=== PATIENT | male | born 1945 | race Caucasian/White ===

== ENCOUNTER → 2017-06-05 | Outpatient (CLI) | payer MEDICARE ==
[2017-06-05 17:56] LABS: Blood Urea Nitrogen 25 mg/dL (9-20); Non-African American GFR(MDRD) >60 (>60 ml/min/1.73 sqM)
--- NOTE | 2017-06-06 10:17 | CT ---
EXAMINATION TYPE: CT abdomen pelvis w con DATE OF EXAM: 06/05/2017 COMPARISON: NONE INDICATION: ABDOMINAL PAIN. HX OF COLON CA. History of testicular cancer DLP: 1660 mGycm, Automated exposure control for dose reduction was used. CONTRAST: 100 mL of Omnipaque 300. Study performed with Oral Contrast TECHNIQUE: Axial images were obtained from above the diaphragm to the pubic rami in the axial plane a t 5 mm thick sections. Reconstructed images are reviewed on the computer in the coronal plane. FINDINGS: Limited CT sections are obtained the lung bases. The lung bases are clear. CT ABDOMEN: Liver: There is a 1.5 cm hypodensity within the medial right lobe liver near the dome of diaphragm. T his measures 15 Hounsfield units and may be a cyst. Consider confirmation with ultrasound. No additio nal masses or cysts are identified. Spleen: Normal Pancreas: There is some fatty infiltration of the pancreas. Adrenal glands: The adrenal glands are normal. Gallbladder: There may be a gallstone at the neck of the gallbladder. This could be evaluated with ul trasound. Kidneys: No masses are evident. No hydronephrosis is present. A 1.1 cm cyst at the medial inferior right kidney. Delayed images were obtained through the kidneys, which remain unremarkable. A nonobst ructing renal stone is in the superior medial left kidney measuring 0.4 cm. 0.6 cm nonobstructing chantell cification is at the inferior pole left kidney. An additional punctate calcification is anterior infe rior pole measuring 0.2 cm. Aorta: Vascular calcification is within the aorta. Inferior vena cava: Normal. CT PELVIS: Loops of bowel within the abdomen and pelvis are normal. There are loops of bowel which are incom pletely distended or lack oral contrast limiting their evaluation. Fecal debris is throughout the col on. Anastomosis is within the mid sigmoid colon region. Appendix: Normal as visualized. Urinary bladder: Normal. Genitourinary structures: Prostate contains calcification slightly prominent. Osseous structures: No suspicious lytic or sclerotic lesions. Degenerative disc changes are within th e lumbar spine. Vacuum disc phenomenon is present. Degenerative changes at the bilateral hips. No suspicious abdominal or pelvic adenopathy is evident. No abnormal adenopathy at the level of the r enal veins is identified. IMPRESSIONS: 1. 1.5 cm hypodensity at superior medial right lobe liver likely is a cyst. The borders however some what indistinct. Confirmation with ultrasound is recommended. 2. Probable cortical renal cyst mid to inferior right kidney. 3. Nonobstructing left renal stones. 4. Suspected cholelithiasis.
== END | disposition home or self-care (01) ==
LOC: RADCTMAIN 17:08
PROVIDERS: ATTEND Urology
DX: N20.0 Calculus of kidney (principal); K76.89 Other specified diseases of liver; C62.11 Malignant neoplasm of descended right testis
CPT/HCPCS: 82565; 84520; 74177; 36415; Q9967

== ENCOUNTER 2017-10-02 09:19 | Day surgery (SDC) | payer MEDICARE ==
[2017-10-01 13:05] VITALS: BMI 32.7
[~2017-10-02 09:19] MED LIST: LACTATED RINGERS 1,000 ML IV SCH
[2017-10-02] MEDS: CYCLOPENTOLATE 1% OPHTH SOLN 2 ML BTL OP ONE ×3 (10:33→10:50)
[2017-10-02] MEDS: FLURBIPROFEN 0.03% OPHTH DROPS 2.5 ML BTL OP ONE ×3 (10:36→10:53)
[2017-10-02] MEDS: PHENYLEPHRINE 10% OPHTH DROPS 5 ML BTL OP ONE ×2 (10:39→10:47)
[2017-10-02] MEDS ORDERED: LIDOCAINE 1% 20 ML VIAL (10MG/ML) FOR IV START INTRADERMA ONE (11:00)
[2017-10-02 11:01] LABS: Glucose,Whole Blood 217 mg/dL (75-99)
[2017-10-02 11:08] VITALS: RESP 18; TEMP 98
[2017-10-02] MEDS ORDERED: MIDAZOLAM 2 MG/2 ML VIAL ONE (11:18)
[2017-10-02] MEDS ORDERED: PROPOFOL 10 MG/ML 20 ML VIAL IV ONE (11:18)
[2017-10-02] MEDS ORDERED: fentaNYL (PF) 50 MCG/ML 2 ML AMP ONE (11:18)
[2017-10-02] MEDS ORDERED: EPINEPHrine (PF) 0.5 ML in BALANCED SALT IRRIG SOLN COMB2 500 ML IRRIGATION ONE (11:23)
[2017-10-02] MEDS ORDERED: HYALURONATE SODIUM INTRAOCULAR 1 EACH SYRINGE (10MG/ML) INTRAOCULA ONE (11:29)
[2017-10-02] MEDS ORDERED: BALANCED SALT IRRIG SOLN COMB2 15 ML IRRIG.SOLN INTRAOCULA ONE (11:29)
--- NOTE | 2017-10-02 11:39 | P.OP ---
Date of Procedure: 10/02/17 Procedure(s) Performed: PREOPERATIVE DIAGNOSIS: Cataract, right eye. POSTOPERATIVE DIAGNOSIS: Cataract, right eye. OPERATION: Phacoemulsification cataract, right eye. DESCRIPTION OF PROCEDURE: The patient was taken to the preoperative holding area. Intravenous Propofol was given so as to bring about adequate sedation. The following mixture was given for local anesthesia: 5 mL of 2% lidocaine, 5 mL of 0.75% Marcaine, and 1 mL of Wydase. Approximately 4 mL was injected in the retrobulbar space of the surgical eye. Additional 1 mL was then directed to the temporal area of the surgical eye. This was performed to allow adequate neurological block of the facial muscles. The patient was revived and then taken into the operative room. The patient was prepped and draped in the usual sterile manner for the operative eye. A lid speculum was put into position. The conjunctiva was resected back from the limbus in the 12 o'clock position. Bleeding was controlled with electrocautery. A #69 blade was then used and a half-thickness scleral incision approximately 1-mm posterior to the limbus was made on bare sclera. This was shelved in the clear cornea using a crescent knife. Next a 15-degree blade was used to make a stab incision at the 3 o' clock position at the corneolimbal interface. Keratome blade was then used and the superior wound was extended into the anterior chamber. Viscoelastic was injected into the anterior chamber and to maintain its form. Next, a cystotome was used and a continuous anterior capsulotomy was made without difficulty. Hydrodissection using a blunt cannula and BSS was performed. Phaco probe was then employed and a groove extending from 12 to 6 o'clock in the lens was created. A Lazaro wand was used through the stab incision so as to perform a divide and conquer technique. Next an irrigation aspiration probe was utilized and any residual cortex was removed from the eye. Again, viscoelastic was injected into the anterior chamber. An Juancho posterior chamber lens implant was placed in the cartridge and injected into the anterior chamber without difficulty. The [employer]ey hook was utilized to spin the lens into position and this was again performed without any difficulty. The irrigation and aspiration probe was again employed and any residual viscoelastic was removed from the eye. Then BSS was injected into the limbal stab incision and the anterior chamber re-inflated. The conjunctiva was reapproximated using electrocautery. One drop of 0.25% Timoptic was placed over the corneal along with TobraDex ophthalmic ointment. Two sterile patches and a Ross eye shield were taped into position. The patient was transported to the recovery room in stable condition. Pathology: none sent Condition: stable Disposition: same day
[2017-10-02 12:06] VITALS: BP 145/70; PULSE 73
[2017-10-02] MEDS ORDERED: TIMOLOL 0.5% OPHTH DROPS 5 ML BTL OP ONE (23:00)
[2017-10-02] MEDS ORDERED: GENTAMICIN/PREDNISOL AC OPHTH OINT 3.5GM OPHTHALMIC ONE (23:00)
[2017-10-02] MEDS ORDERED: BUPIVACAINE (PF) 0.75% 5 ML, HYALURONIDASE, HUMAN RECOMB 150 UNIT, LIDOCAINE 2% (PF) 10... MISCELLANE ONE ×3 (23:00)
== END 2017-10-02 12:21 | disposition home or self-care (01) ==
LOC: OR 09:19
PROVIDERS: ATTEND Ophthalmology
DX: H25.11 Age-related nuclear cataract, right eye (principal); E11.9 Type 2 diabetes mellitus without complications; I10 Essential (primary) hypertension; G47.33 Obstructive sleep apnea (adult) (pediatric); E78.5 Hyperlipidemia, unspecified; N28.9 Disorder of kidney and ureter, unspecified; E66.9 Obesity, unspecified; Z68.32 Body mass index [BMI] 32.0-32.9, adult; Z85.038 Personal history of other malignant neoplasm of large intestine; Z85.47 Personal history of malignant neoplasm of testis; Z79.84 Long term (current) use of oral hypoglycemic drugs; Z79.1 Long term (current) use of non-steroidal anti-inflammatories (NSAID); Z79.899 Other long term (current) drug therapy; Z79.4 Long term (current) use of insulin; Z88.2 Allergy status to sulfonamides; Z91.040 Latex allergy status; Z88.0 Allergy status to penicillin; Z88.8 Allergy status to other drugs, medicaments and biological substances; Z91.09 Other allergy status, other than to drugs and biological substances
CPT/HCPCS: 66984; V2632; J2250; J3470; J2001; J0171; J3010; J2704

== ENCOUNTER → 2019-03-07 | Outpatient (CLI) | payer MEDICARE ==
--- NOTE | 2019-03-07 17:42 | ECHOF ---
Referral Reason:R01.1 Cardiac murmur MEASUREMENTS -------- HEIGHT: 172.7 cm WEIGHT: 102.1 kg BP: RVIDd: 3.9 cm (< 3.3) IVSd: 1.5 cm (0.6 - 1.1) LVIDd: 3.7 cm (3.9 - 5.3) LVPWd: 1.8 cm (0.6 - 1.1) IVSs: 1.8 cm LVIDs: 2.8 cm LVPWs: 2.0 cm LA Diam: 1.9 cm (2.7 - 3.8) LAESV Index (A-L): 16.79 ml/m Ao Diam: 2.9 cm (2.0 - 3.7) AV Cusp: 2.1 cm (1.5 - 2.6) LA Diam: 3.8 cm (2.7 - 3.8) EPSS: 1.1 cm MV E Rojas: 0.80 m/s MV DecT: 272 ms MV A Rojas: 1.05 m/s MV E/A Ratio: 0.77 RAP: 5.00 mmHg RVSP: 35.98 mmHg MV EF SLOPE: 61.80 mm/s (70 - 150) MV EXCURSION: 1.35 cm (> 18.000) FINDINGS -------- Sinus rhythm. This was a technically adequate study. The left ventricular size is normal. There is moderate concentric left ventricular hypertrophy. O verall left ventricular systolic function is normal with, an EF between 55 - 60 %. The diastolic fi lling pattern is normal for the age of the patient. The right ventricle is mildly enlarged. Left atrium is normal size by volume. The right atrial size is normal. Interatrial and interventricular septum intact. There is no evidence of aortic regurgitation. There is no evidence of aortic stenosis. There is trace mitral regurgitation. Mild tricuspid regurgitation present. There is mild pulmonary hypertension. The right ventricular systolic pressure, as measured by Doppler, is 35.98mmHg. There is no pulmonic regurgitation present. The aortic root size is normal. The inferior vena cava was not well visualized. Echo free space may represent effusion or a pericardial fat pad. CONCLUSIONS -------- 1. Sinus rhythm. 2. This was a technically adequate study. 3. The left ventricular size is normal. 4. There is moderate concentric left ventricular hypertrophy. 5. Overall left ventricular systolic function is normal with, an EF between 55 - 60 %. 6. The diastolic filling pattern is normal for the age of the patient. 7. The right ventricle is mildly enlarged. 8. Left atrium is normal size by volume. 9. The right atrial size is normal. 10. Interatrial and interventricular septum intact. 11. There is no evidence of aortic regurgitation. 12. There is no evidence of aortic stenosis. 13. There is trace mitral regurgitation. 14. Mild tricuspid regurgitation present. 15. There is mild pulmonary hypertension. 16. The right ventricular systolic pressure, as measured by Doppler, is 35.98mmHg. 17. There is no pulmonic regurgitation present. 18. The aortic root size is normal. 19. The inferior vena cava was not well visualized. 20. Echo free space may represent effusion or a pericardial fat pad. [employer]ICE INSTRUCTOR: Yeni Sepulveda RDCS
== END | disposition home or self-care (01) ==
LOC: RADECHMAIN 14:33
PROVIDERS: ATTEND Family Medicine
DX: I07.1 Rheumatic tricuspid insufficiency (principal); I27.20 Pulmonary hypertension, unspecified
CPT/HCPCS: 93306

== ENCOUNTER 2019-09-11 07:01 | Day surgery (SDC) | payer MEDICARE ==
[2019-09-10 09:02] VITALS: BMI 33.2
[~2019-09-11 07:01] MED LIST changes: +LIDOCAINE 1% 20 ML VIAL (10MG/ML) FOR IV START INTRADERMA PRN
[2019-09-11 07:19] VITALS: TEMP 97.3
[2019-09-11 07:31] LABS: Glucose,Whole Blood 195 mg/dL (75-99)
[2019-09-11] MEDS ORDERED: LIDOCAINE 1% INJ 10MG/ML (20 ML MDV) ONE (07:36)
[2019-09-11] MEDS ORDERED: MIDAZOLAM 2 MG/2 ML VIAL ONE (07:36)
[2019-09-11] MEDS ORDERED: PROPOFOL 10 MG/ML 20 ML VIAL IV ONE (07:36)
[2019-09-11] MEDS ORDERED: fentaNYL (PF) 50 MCG/ML 2 ML AMP ONE (07:36)
--- NOTE | 2019-09-11 08:01 | P.PCN ---
Date of Procedure: 09/11/19 Description of Procedure: BRIEF HISTORY: 74-year-old male patient presenting for outpatient EGD for evaluation of symptoms of esophagitis. Patient reports decreased oral intake and appetite over the past few months. He recently had episodes of difficulty swallowing and there was concern for esophagitis. He takes omeprazole in the outpatient setting. PROCEDURE PERFORMED: Esophagogastroduodenoscopy with biopsy. PREOPERATIVE DIAGNOSIS: Esophagitis, GERD ESTIMATED BLOOD LOSS: Minimal. IV sedation per anesthesia. PROCEDURE: After informed consent was obtained, the patient was brought into the endoscopy unit. IV sedation was administered by Anesthesia under continuous monitoring. Initially the Olympus GIF-190 video endoscope was inserted into the mouth. Esophagus intubated without any difficulty. It was gradually advanced into the stomach and duodenum and carefully examined. The bulb and the second part of the duodenum appeared normal, with biopsies taken. The scope at this time was withdrawn to the stomach, adequately insufflated with air, and upon careful examination, mucosa of the antrum, body, cardia and the fundus appeared normal, except for some mild erythema in the antrum and body suggestive of mild gastritis with biopsies taken. There was also a large amount of solid retained food in the patient's stomach suggestive of gastroparesis. The scope was then withdrawn into the esophagus. The GE junction was located at 39 cm from the incisors. The esophagus appear grossly normal there was however some LA grade a distal esophagitis and tissue suggestive of also Zamora's esophagus with biopsies of the distal esophagus/GE junction taken. There were no erosions or ulcerations seen and the patient tolerated the procedure well. IMPRESSION: 1. Mild gastritis antrum and body, biopsied. 2. LA grade a distal esophagitis with biopsies of the distal esophagus/GE junction taken. 3. Retained gastric food/debris, suggestive of gastroparesis. 4. Duodenal biopsies. RECOMMENDATIONS: The findings of this examination were discussed with the pat and his . Okay to resume diet, discussion with the patient are low fiber low residual diet in the setting of possible diabetic gastroparesis. Continue omeprazole daily. Await pathology from biopsies.
[2019-09-11 08:02] VITALS: RESP 16
[2019-09-11 08:17] VITALS: BP 120/69; PULSE 75
== END 2019-09-11 08:52 | disposition home or self-care (01) ==
LOC: ORWHC2ENDO 07:01
PROVIDERS: ATTEND Internal Medicine
DX: K29.50 Unspecified chronic gastritis without bleeding (principal); K22.70 Barrett's esophagus without dysplasia; I10 Essential (primary) hypertension; E78.5 Hyperlipidemia, unspecified; G62.9 Polyneuropathy, unspecified; F32.9 Major depressive disorder, single episode, unspecified; Z85.038 Personal history of other malignant neoplasm of large intestine; Z85.47 Personal history of malignant neoplasm of testis; Z90.49 Acquired absence of other specified parts of digestive tract; Z79.84 Long term (current) use of oral hypoglycemic drugs; Z79.82 Long term (current) use of aspirin; Z79.899 Other long term (current) drug therapy; Z91.040 Latex allergy status; Z88.0 Allergy status to penicillin; Z88.2 Allergy status to sulfonamides; Z88.8 Allergy status to other drugs, medicaments and biological substances; Z91.048 Other nonmedicinal substance allergy status
CPT/HCPCS: 88305; 43239; J2250; J2001; J3010; J2704

== ENCOUNTER → 2021-11-21 | Outpatient (CLI) | payer MEDICARE ==
--- NOTE | 2021-11-21 11:01 | CT ---
EXAMINATION TYPE: CT urogram wo/w con DATE OF EXAM: 11/21/2021 INDICATION: hematuria CT DLP: 3970 mGy.cm Automated Exposure Control for Dose Reduction was Utilized. TECHNIQUE AND CONTRAST: CT scan of the abdomen and pelvis is performed without and with IV Contrast, as per CT urogram protoc ol. The patient was injected with 100ML mL of Isovue 300. 3-D reconstruction images were generated on an independent workstation and reviewed. COMPARISON: CT dated 06/05/2017 FINDINGS: A nonobstructing stone is seen at the lower pole of the left kidney measuring 8 x 8 x 12 mm. 2 smalle r calculi are seen at the upper pole of the left kidney measuring 3mm and 7 mm respectively. 8mm nono bstructing stone is seen at the upper pole of the right kidney. No other definite radiodense renal, u reteric or urinary bladder calculi. Slightly dilated left upper calyceal group probably due to a slig htly more proximal stricture. No hydroureter or hydronephrosis otherwise. Suspicious nodular lesion is seen in the right side of the superior aspect of the urinary bladder moises suring 2.2 x 2.6 x 2.6 cm with adjacent urinary bladder wall thickening and perivesical fat stranding . This could represent a urothelial tumor. No definite filling defect is seen within the renal collec ting system or the ureters. Simple cyst is seen at the lower pole of right kidney, otherwise unremark able kidneys. No other gross urinary bladder abnormality. Prostatic concretion with slightly enlarged prostate. Unremarkable seminal vesicles. Bulky liver with suspected hepatic steatosis. No definite hepatic focal lesion identified. Dependent hyperdensity within the gallbladder, possibly representing cholelithiasis. No evidence of acute trace cystitis. Unremarkable spleen and adrenals. Cyst is seen within the uncinate process of the pancreas measuring 2.5 cm compared to [address] scan. Other scattered smaller pancreatic body and tail c ysts ranging in size between 8 mm and 19 mm, also progressed compared to the previous CT scan. They c ould represent IPMNs, for further MRI assessment. Fatty infiltration of the pancreas. Scattered arterial atherosclerotic calcifications. Unremarkable stomach, duodenum and small bowel. Un remarkable colonic anastomosis in the pelvis. Fecal loading of the colon. Normal appendix. Left fat-c ontaining inguinal hernia. No suspicious lymphadenopathy or sizable ascites. Unremarkable lung bases. Degenerative changes of the lumbar spine with retrolisthesis of L3 over L4 and anterolisthesis of L4 over L5 as well as L5 over S1. Severe spinal canal stenosis at L4-5 level. IMPRESSION: 1. Right-sided superior urinary bladder lesion as described above, suspicious for urothelial tumor, p lease correlate with urinalysis results including cytology. Recommend urology consultation, cystoscop y and tissue diagnosis. 2. Bilateral nonobstructing renal calculi as described above. No definite suspicious renal or ureteri c lesion. 3. Multiple pancreatic cysts, progressed compared to 2017 CT scan as detailed above. They could repre sent IPMNs, for further MRI assessment. Other incidental findings as described above.
== END | disposition home or self-care (01) ==
LOC: RADCTMAIN 08:01
PROVIDERS: ATTEND Family Medicine
DX: N32.89 Other specified disorders of bladder (principal); N20.0 Calculus of kidney; K86.2 Cyst of pancreas
CPT/HCPCS: 82565; 84520; 74178; 36415; 74400; Q9967

== ENCOUNTER → 2022-05-17 | Outpatient (CLI) | payer MEDICARE ==
[2022-05-17 14:28] LABS: Basophils # (A) 0.07 X 10*3/uL (0.00-0.10); Basophils % (A) 1.3 %; Eosinophils # (A) 0.12 X 10*3/uL (0.04-0.35); Eosinophils % (A) 2.3 %; HCT 48.4 % (39.6-50.0); HGB 15.2 g/dL (13.0-17.0); Immature Grans, Automated 0.2 %; Lymphocytes # (A) 1.43 X 10*3/uL (0.90-5.00); Lymphocytes % (A) 27.3 %; MCH 27.5 pg (27.0-32.0); MCHC 31.4 g/dL (32.0-37.0); MCV 87.7 fL (80.0-97.0); Mean Platelet Volume 11.2 fL (9.5-12.2); Monocytes # (A) 0.36 X 10*3/uL (0.20-1.00); Monocytes % (A) 6.9 %; NRBC Per 100 WBC 0 /100 WBCS (0.0-0.0); Neutrophils # (A) 3.25 X 10*3/uL (1.80-7.70); Platelet Count 194 X 10*3/uL (140-440); RBC 5.52 X 10*6/uL (4.40-5.60); RDW 15.2 % (11.5-14.5); WBC 5.24 X 10*3/uL (4.50-10.00)
[2022-05-17 15:40] LABS: African American GFR (CKD) 80.1 (60.0-200.0); Anion Gap 12.3 mmol/L (10.00-18.00); BUN/Creat Ratio 19.9 Ratio (12.00-20.00); Blood Urea Nitrogen 20.9 mg/dL (9.0-27.0); Calcium 9.7 mg/dL (8.7-10.3); Carbon Dioxide 24.6 mmol/L (20.0-27.5); Non-African American GFR(CKD) 69.1 (60.0-200.0); Potassium 4.9 mmol/L (3.5-5.5)
== END | disposition home or self-care (01) ==
LOC: LABPAT 09:47
PROVIDERS: ATTEND Urology
DX: Z01.812 Encounter for preprocedural laboratory examination (principal); C67.5 Malignant neoplasm of bladder neck
CPT/HCPCS: 80048; 85025

== ENCOUNTER 2022-06-01 11:58 | Day surgery (SDC) | payer MEDICARE ==
[2022-05-30 16:19] VITALS: BMI 28.4
[~2022-06-01 11:58] MED LIST changes: +DEXAMETHASONE SOD PHOSPHATE 4 MG/ML 1 ML VIAL IV ONE; +HYDROmorphone 0.5 MG/0.5 ML SYRINGE IVP PRN; +LIDOCAINE 1% (10MG/ML) FOR IV START INTRADERMA PRN; -LIDOCAINE 1% 20 ML VIAL (10MG/ML) FOR IV START INTRADERMA PRN; +MIDAZOLAM 2 MG/2 ML VIAL IV PRN; +ONDANSETRON 4 MG/2 ML VIAL IVP ONE
[2022-06-01 12:34] VITALS: RESP 16
[2022-06-01 12:43] LABS: Glucose,Whole Blood 116 mg/dL (70-110)
--- NOTE | 2022-06-01 13:17 | P.GSHP ---
History of Present Illness H&P Date: 06/01/22 Chief Complaint: Bladder cancer Patient is a 77-year-old white male who presented with gross hematuria. A CT urogram showed bilateral renal calculi and a 2.6 cm bladder tumor. Cystoscopy showed multiple tumors at the bladder dome. 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 Reresection was performed on 01/11/2022. Delayed healing at the bladder dome was noted, and resection revealed rare residual foci of high- grade noninvasive papillary urothelial carcinoma. He completed a six-week course of intravesical Gemcitabine on 03/21/2022. Recent cystoscopy has showed a small lesion at the verumontanum as well as delayed healing at the bladder dome. He comes for resection of these lesions. - Constitutional Constitutional: Denies chills, Denies fever - Genitourinary (Male) Genitourinary: Denies dysuria, Denies hematuria Past Medical History Past Medical History: Cancer, Diabetes Mellitus, Eye Disorder, GERD/Reflux, Hyperlipidemia, Hypertension, Prostate Disorder, Sleep Apnea/CPAP/BIPAP Additional Past Medical History / Comment(s): hx colon and testicular cancer, neuropathy, uses cpap, MIGRAINE HEADACHE, KIDNEY STONES History of Any Multi-Drug Resistant Organisms: None Reported Past Surgical History: Bowel Resection, Joint Replacement Additional Past Surgical History / Comment(s): lt testicle removed, bilateral cataracts removed, total right knee Past Anesthesia/Blood Transfusion Reactions: No Reported Reaction Smoking Status: Former smoker - Past Family History Mother Family Medical History: Deep Vein Thrombosis (DVT) Medications and Allergies Home Medications Medication Instructions Recorded Confirmed Type Ascorbic Acid [Vitamin C] 500 mg PO DAILY 10/01/17 05/30/22 History Aspirin [Adult Low Dose Aspirin EC] 81 mg PO HS 10/01/17 05/30/22 History Dulaglutide [Trulicity] 1.5 mg SQ TH 10/01/17 05/30/22 History Ergocalciferol (Vitamin D2) 1,250 mcg PO TH 10/01/17 05/30/22 History [Vitamin D2] Ezetimibe [Zetia] 10 mg PO DAILY 10/01/17 05/30/22 History Gabapentin 600 mg PO TID 10/01/17 05/30/22 History Multivitamins, Thera [Multivitamin 1 tab PO DAILY 10/01/17 05/30/22 History (formulary)] Patterson-3 Fatty Acids/Fish Oil [Fish 1 each PO BID 10/01/17 05/30/22 History Oil 1,000 mg Softgel] Prostate Herbal Combo 1 tab PO BID 10/01/17 05/30/22 History Repaglinide [Prandin] 2 mg PO BID 10/01/17 05/30/22 History Testosterone [Androgel 1.62% Gel 1 applic TOPICAL DAILY 10/01/17 05/30/22 History Pump] Zolpidem [Ambien] 5 mg PO HS PRN 10/01/17 05/30/22 History gemfibroziL [Lopid] 600 mg PO AC-BID 10/01/17 05/30/22 History metFORMIN HCL [Glucophage] 1,000 mg PO BID 10/01/17 05/30/22 History Empagliflozin [Jardiance] 25 mg PO DAILY 09/10/19 05/30/22 History Omeprazole [PriLOSEC] 20 mg PO AC-BRKFST 09/10/19 05/30/22 History Allergies Allergy/AdvReac Type Severity Reaction Status Date / Time fenofibrate [From Tricor] Allergy Anaphylaxis Verified 06/01/22 12:23 latex Allergy reddened Verified 06/01/22 12:23 skin mold Allergy swollen Verified 06/01/22 12:23 eyes and sneezing Penicillins Allergy Rash/Hives Verified 06/01/22 12:23 Sulfa (Sulfonamide Allergy Anaphylaxis Verified 06/01/22 12:23 Antibiotics) Dubynva-QFS-ShY Reductase AdvReac stomach Verified 06/01/22 12:23 Inhibitor cramping, [Qxoohai-Isi-Ppn Reductase agitation Inhibitor] Surgical - Exam - General well developed, well nourished, no distress - Respiratory normal respiratory effort - Abdomen Abdomen: soft, non tender, no guarding, no rigid, no rebound - Genitourinary normal penis with no external lesions, testicles non-tender - Psychiatric oriented to time, oriented to person, oriented to place, speech is normal, memory intact Assessment and Plan (1) Malignant neoplasm of bladder, unspecified Current Visit: Yes Status: Acute Code(s): C67.9 - MALIGNANT NEOPLASM OF BLADDER, UNSPECIFIED SNOMED Code(s): 770794532 Plan: Cystoscopy, transurethral resection of bladder dome and prostatic urethra. The procedure then reviewed in detail with the patient. He is aware of potential risks, which include anesthesia, bleeding, infection, postoperative urinary retention, and bladder perforation.
[2022-06-01] MEDS ORDERED: MIDAZOLAM 2 MG/2 ML VIAL ONE (13:38)
[2022-06-01] MEDS ORDERED: fentaNYL (PF) 50 MCG/ML 2 ML AMP ONE (13:38)
[2022-06-01] MEDS ORDERED: SUCCINYLCHOLINE CHLORIDE 200 MG/10 ML VIAL IV ONE (13:38)
[2022-06-01] MEDS ORDERED: PROPOFOL 10 MG/ML 20 ML VIAL IV ONE (13:38)
[2022-06-01] MEDS ORDERED: LIDOCAINE 2% INJ 20 MG/ML (2 ML VIAL) ONE (13:38)
[2022-06-01] MEDS ORDERED: PHENYLEPHRINE-0.9% NACL SYG 1,000 MCG/10 ML SYRINGE ONE (13:38)
[2022-06-01 14:19] VITALS: TEMP 97.8
[2022-06-01 16:07] VITALS: BP 154/77; PULSE 67
--- NOTE | 2022-06-01 17:19 | P.OP ---
Date of Procedure: 06/01/22 Preoperative Diagnosis: Urothelial carcinoma the bladder Postoperative Diagnosis: Same Procedure(s) Performed: Cystoscopy with excisional biopsy of prostatic urethral lesion Anesthesia: ANELA Surgeon: Kel Mccartney Estimated Blood Loss (ml): 0 IV fluids (ml): 200 Pathology: other (Prostatic urethral lesion) Condition: stable Disposition: PACU Indications for Procedure: Patient is a 77-year-old white male who presented with gross hematuria. A CT urogram showed bilateral renal calculi and a 2.6 cm bladder tumor. Cystoscopy showed multiple tumors at the bladder dome. 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 Reresection was performed on 01/11/2022. Delayed healing at the bladder dome was noted, and resection revealed rare residual foci of high- grade noninvasive papillary urothelial carcinoma. He completed a six-week course of intravesical Gemcitabine on 03/21/2022. Recent cystoscopy has showed a small lesion at the verumontanum as well as delayed healing at the bladder dome. He comes for resection of these lesions. Operative Findings: Small lesion arising from the proximal aspect of the verumontanum. Bladder dome scarring. Description of Procedure: The patient was taken in the operating room and placed in the dorsal lithotomy position, with his legs supported in Terrance stirrups. The external genitalia was prepped and draped sterilely. The 25-[place] ACMI resectoscope sheath was introduced into the bladder. The bladder was inspected. Both ureteral orifices were of normal anatomic location and configuration, and clear urine effluxed from both. The entire bladder was examined, revealing scarring at the bladder dome. No tumors were seen. The resectoscope was withdrawn into the prostatic urethra. A small lesion measuring 3-5 mm arose from the proximal aspect of the verumontanum. Using the cutting loop, the lesion was resected and sent for pathologic examination. The resection bed was fulgurated. Excellent hemostasis was attained. The bladder was emptied and the resectoscope removed. The patient tolerated the procedure well and was taken to the recovery room in stable condition.
== END 2022-06-01 16:34 | disposition home or self-care (01) ==
LOC: OR 11:58
PROVIDERS: ATTEND Urology
DX: N30.21 Other chronic cystitis with hematuria (principal); G47.30 Sleep apnea, unspecified; E78.5 Hyperlipidemia, unspecified; I10 Essential (primary) hypertension; Z90.79 Acquired absence of other genital organ(s); K21.9 Gastro-esophageal reflux disease without esophagitis; Z85.47 Personal history of malignant neoplasm of testis; Z87.442 Personal history of urinary calculi; Z87.891 Personal history of nicotine dependence; Z79.82 Long term (current) use of aspirin; Z79.899 Other long term (current) drug therapy; Z88.0 Allergy status to penicillin; Z88.2 Allergy status to sulfonamides; Z88.8 Allergy status to other drugs, medicaments and biological substances
CPT/HCPCS: 88305; 52224; 52354; J2250; J0330; J1100; J0690; J2405; J3010; J2370; J2704; J2001

== ENCOUNTER → 2022-12-07 | Outpatient (CLI) | payer MEDICARE ==
--- NOTE | 2022-12-07 18:18 | US ---
EXAMINATION TYPE: US kidneys/renal and bladder DATE OF EXAM: 12/07/2022 COMPARISON: CT urogram 11/21/21, CT 06/05/17 CLINICAL INDICATION: Male, 77 years old with history of C67.9 BLADDER CA; Hx bladder cancer 1 year ag o, patient had chemo. Hx kidney stones. EXAM MEASUREMENTS: Right Kidney: 12.0 x 4.7 x 5.8 cm Left Kidney: 13.1 x 5.4 x 5.8 cm Right Kidney: Round hypoechoic area seen at mid-lower pole: 2.1 x 1.9 x 1.7 cm. No hydronephrosis. Left Kidney: No hydronephrosis. Hyperechoic focus with posterior shadowing seen upper pole: 1.3 x 1.6 x 0.7 cm. Hyperechoic focus with posterior shadowing seen lower pole: 1.0 x 1.0 x 0.7 cm. Bladder: Appears wnl Bilateral Jets seen: Yes Incidental echogenic appearance to the liver. IMPRESSION: 1. No hydronephrosis. 2. A couple nonobstructive left renal calculi measuring up to 1.6 cm. 3. Indeterminate 2.1 cm cortical lesion mid pole right kidney. A complicated cyst and solid mass are in the differential. We note a 1.9 cm cyst in this location on the 11/21/2021 CT urogram which this tim tam corresponds to. Recommend 3-6 month follow-up ultrasound to ensure stability. 4. Incidental hepatic steatosis.
== END | disposition home or self-care (01) ==
LOC: RADUSWWP 14:00
PROVIDERS: ATTEND Urology
DX: C67.9 Malignant neoplasm of bladder, unspecified (principal); N20.0 Calculus of kidney
CPT/HCPCS: 76770

== ENCOUNTER → 2024-01-28 | Outpatient (CLI) | payer MEDICARE ==
[2024-01-28 11:03] LABS: African American GFR (CKD) 84 (>60 ml/min/1.73 sqM); Blood Urea Nitrogen 26 mg/dL (9-20); Non-African American GFR(CKD) 72 (>60 ml/min/1.73 sqM)
--- NOTE | 2024-01-28 12:27 | CT ---
EXAMINATION TYPE: CT abdomen pelvis w con DATE OF EXAM: 01/28/2024 COMPARISON: 11/21/2021 HISTORY: F/U bladder ca CT DLP: 1408.2 mGycm CONTRAST: CT scan of the abdomen and pelvis is performed with Oral Contrast and with IV Contrast, patient injec geraldo with 100 mL of Isovue 300. FINDINGS: LUNG BASES-: No visible nodule. No infiltrate. LIVER/GB: Small gallstone is noted. No space occupying hepatic lesion. Biliary tree is of normal irina alonso. PANCREAS: No inflammation. No distinct mass. SPLEEN: No splenic enlargement. No lesion seen. ADRENALS: No nodule. No thickening. KIDNEYS/BLADDER: No hydronephrosis. Nonobstructing calculus lower pole left kidney measures 1.3 cm. Additional calculus upper pole left kidney measures 4 mm. Nonobstructing 6 mm calculus midpole right kidney. Simple appearing cyst mid to lower pole right kidney measuring 1.8 cm. Urinary bladder grossl y unremarkable. No evidence for a urinary bladder mass at this time or wall thickening. BOWEL: Normal appendix. Normal bowel caliber. No inflammation. GENITAL ORGANS: Prostate gland enlargement. LYMPH NODES: No greater than 1cm abdominal or pelvic lymph nodes are appreciated. AORTA: No significant abnormality. OSSEOUS STRUCTURES: No significant abnormality is seen. OTHER: No significant additional abnormality is seen. IMPRESSION: 1. No evidence for a urinary bladder mass at this time or wall thickening. No evidence for metastatic disease to the abdomen or pelvis. .
== END | disposition home or self-care (01) ==
LOC: RADCTMAIN 09:57
PROVIDERS: ATTEND Urology
DX: C67.9 Malignant neoplasm of bladder, unspecified (principal)
CPT/HCPCS: 82565; 84520; 74177; 36415; Q9967

== ENCOUNTER → 2025-02-17 | Outpatient (CLI) | payer MEDICARE ==
[2025-02-17 10:29] LABS: African American GFR (CKD) >90 (>60 ml/min/1.73 sqM); Blood Urea Nitrogen 18 mg/dL (9-20); Non-African American GFR(CKD) 84 (>60 ml/min/1.73 sqM)
--- NOTE | 2025-02-17 12:01 | CT ---
EXAMINATION TYPE: CT abdomen pelvis w con DATE OF EXAM: 02/17/2025 11:42 AM COMPARISON: CT abdomen pelvis dating back to 06/05/2017 CLINICAL INDICATION: Male, 80 years old with history of C67.9 MALIGNANT NEOPLASM OF BLADDER, UNSPECIF IED; bladder ca TECHNIQUE: Axial CT abdomen pelvis w con;Sagittal and coronal reformats were created on a separate w orkstation. Contrast used:100 mL of Isovue 300 with IV Contrast, (none if empty) Oral contrast used: with Oral Contrast (none if empty) CT DLP: 1524 mGycm, Automated exposure control for dose reduction was used. FINDINGS: LOWER CHEST: Unremarkable ABDOMEN LIVER: Diffusely hypoattenuating parenchyma. GALLBLADDER AND BILE DUCTS: Layering increased densities within the lumen consistent with gallstones are present. PANCREAS: Pancreatic head soft tissue mass on back of fatty atrophy changes measuring 21 x 18 mm. Pre viously measuring up to 19 mm on 06/05/2017 SPLEEN: Unremarkable. ADRENAL GLANDS: Unremarkable. KIDNEYS AND URETERS: No evidence of hydronephrosis or obstructing renal calculus. The ureters are unr emarkable. Nonobstructing calculi measuring up tor 6 mm in the right and 13 mm on the left. Simila r appearing right renal cortical cyst. No follow-up recommended. PELVIS BLADDER: Air-fluid level in the bladder lumen. Fat stranding changes around the bladder wall. No evid ence for wall thickening or mass given limitations of exam. REPRODUCTIVE: Prostate is enlarged in size measuring 5.7 cm in transverse dimension. ABDOMEN & PELVIS STOMACH AND BOWEL: No evidence of bowel obstruction. Postsurgical changes to the sigmoid colon. No dia wel wall thickening identified. PERITONEUM/RETROPERITONEUM: No evidence of pneumoperitoneum or free fluid. VASCULATURE: No evidence of aortic aneurysm. MUSCULOSKELETAL: No acute osseous abnormalities. Moderate disc degeneration changes are present throu ghout the thoracolumbar spine. Schmorl's plates.. At the superior endplate of L2 Slight grade 1 anter olisthesis of L4 and L5. Remote left inferior rib injury of rib 10 LYMPH NODES: No gross evidence for lymphadenopathy. SOFT TISSUE/ABDOMINAL WALL: Right Fat-containing inguinal hernia. IMPRESSION: 1. Bladder wall hazy fat stranding with air in the bladder lumen probably from recent instrumentatio n. Correlate with urinalysis to exclude cystitis. 2. Post surgical changes to the sigmoid colon. No lymphadenopathy No evidence for wall thickening or obstruction. 3. Prostatomegaly, correlate with serum PSA. 4. Right fat containing inguinal hernia. 5. Nonobstructing bilateral renal calculi. 6. Simple appearing right renal cortical cyst. No follow-up recommended. 7. Cholelithiasis. 8. Pancreatic head soft tissue mass on back of fatty atrophy changes measuring 21 x 18 mm similar to 2017. If not already performed consider MRI MRCP for complete evaluation. Given stability. This is l ikely benign. 9. Hepatic steatosis. [facility], , 02/17/2025 11:59 AM
== END | disposition home or self-care (01) ==
LOC: RADCTMAIN 09:52
PROVIDERS: ATTEND Urology
DX: C67.9 Malignant neoplasm of bladder, unspecified (principal); N40.0 Benign prostatic hyperplasia without lower urinary tract symptoms; K40.90 Unilateral inguinal hernia, without obstruction or gangrene, not specified as recurrent; N20.0 Calculus of kidney; N28.1 Cyst of kidney, acquired; K80.20 Calculus of gallbladder without cholecystitis without obstruction; K86.89 Other specified diseases of pancreas; K76.0 Fatty (change of) liver, not elsewhere classified
CPT/HCPCS: 82565; 84520; 74177; 36415; Q9967

== ENCOUNTER 2025-02-24 13:38 | Inpatient (IN) | payer MEDICARE ==
[2025-02-24] MEDS: ACETAMINOPHEN TAB 325 MG TAB PO STA (14:12)
--- NOTE | 2025-02-24 14:13 | ED ---
Altered Mental Status HPI - General Chief Complaint: Altered Mental Status Stated Complaint: Possible sepsis Time Seen by Provider: 02/24/25 13:45 Source: EMS Mode of arrival: EMS - History of Present Illness Initial Comments: 80-year-old male with past medical history of kidney stones, bladder cancer, testicular cancer, hypertension, who presents to the emergency department with altered mental status. Patient was of his normal mental status yesterday. He was having left flank pain. He went in to [facility]. Laboratory studies were performed. Patient had a CT performed. He was discharged home with pain medications and told to strain all of his urine. Patient began to feel worse today and was altered at home. EMS was called to the house where valerie found that the patient had an oxygen level in the low 80s. Patient typically does not wear oxygen. He denies cough or shortness of breath. Patient found to have significantly elevated temperature. He is not on any antibiotics currently. Patient follow with Dr. Mccartney. He denies any falls. No headache or visual changes. No neck or back pain. States that his flank pain is grossly improved at this time. No other alleviating, precipitating or modifying factors - Related Data Home Medications Medication Instructions Recorded Confirmed Ascorbic Acid [Vitamin C] 500 mg PO HS 10/01/17 02/24/25 Ezetimibe [Zetia] 10 mg PO DAILY 10/01/17 02/24/25 Gabapentin 600 mg PO TID 10/01/17 02/24/25 Multivitamins, Thera [Multivitamin 1 tab PO DAILY 10/01/17 02/24/25 (formulary)] Carver-3 Fatty Acids/Fish Oil [Fish 1 cap PO HS 10/01/17 02/24/25 Oil 1,000 mg Softgel] Prostate Herbal Combo 1 tab PO BID 10/01/17 02/24/25 Testosterone [Androgel 1.62% Gel 1 applic TOPICAL DAILY 10/01/17 02/24/25 Pump] Zolpidem [Ambien] 5 mg PO HS PRN 10/01/17 02/24/25 gemfibroziL [Lopid] 600 mg PO BID 10/01/17 02/24/25 Empagliflozin [Jardiance] 25 mg PO DAILY 09/10/19 02/24/25 Omeprazole [PriLOSEC] 20 mg PO BID 09/10/19 02/24/25 Cinnamon Bark [Cinnamon] 500 mg PO BID 02/24/25 02/24/25 EPINEPHrine (Auto Inject) [Epipen] 0.3 mg IM ONCE PRN 02/24/25 02/24/25 Ergocalciferol [Vitamin D2 (1250 1,250 mcg PO TH 02/24/25 02/24/25 Mcg = 25364 Iu)] HYDROcodone/APAP 5-325MG [[place] 1 tab PO BID PRN 02/24/25 02/24/25 5-325] Insulin Glargine,Hum.rec.anlog 30 units SQ DAILY 02/24/25 02/24/25 [Lantus Solostar Pen] Ondansetron [Zofran] 4 mg PO BID PRN 02/24/25 02/24/25 Tirzepatide [Mounjaro] 12.5 mg SQ TU 02/24/25 02/24/25 Allergies Allergy/AdvReac Type Severity Reaction Status Date / Time atomoxetine [From Strattera] Allergy Unknown Verified 02/24/25 16:08 fenofibrate [From Tricor] Allergy Anaphylaxis Verified 02/24/25 16:08 glipizide Allergy Unknown Verified 02/24/25 16:08 latex Allergy reddened Verified 02/24/25 16:08 skin mold Allergy swollen Verified 02/24/25 16:08 eyes and sneezing Penicillins Allergy Rash/Hives Verified 02/24/25 16:08 pravastatin Allergy Unknown Verified 02/24/25 16:08 rosuvastatin [From Crestor] Allergy Rash/Hives Verified 02/24/25 16:08 Sulfa (Sulfonamide Allergy Anaphylaxis Verified 02/24/25 16:08 Antibiotics) dapagliflozin [From Farxiga] AdvReac Unknown Verified 02/24/25 16:08 Cisfwtl-AHH-RaL Reductase AdvReac stomach Verified 02/24/25 16:08 Inhibitor cramping, [Asevaby-Fui-Rve Reductase agitation Inhibitor] Review of Systems ROS Statement: Those systems with pertinent positive or pertinent negative responses have been documented in the HPI. ROS Other: All systems not noted in ROS Statement are negative. Past Medical History Past Medical History: Cancer, COPD, Diabetes Mellitus, Eye Disorder, GERD/Reflux, Hyperlipidemia, Hypertension, Prostate Disorder, Sleep Apnea/CPAP/BIPAP Additional Past Medical History / Comment(s): hx colon and testicular cancer, neuropathy, uses cpap, MIGRAINE HEADACHE, KIDNEY STONES History of Any Multi-Drug Resistant Organisms: None Reported Past Surgical History: Bowel Resection, Joint Replacement Additional Past Surgical History / Comment(s): lt testicle removed, bilateral cataracts removed, total right knee Past Anesthesia/Blood Transfusion Reactions: No Reported Reaction Past Psychological History: Depression Smoking Status: Former smoker Past Alcohol Use History: None Reported Past Drug Use History: None Reported - Past Family History Mother Family Medical History: Deep Vein Thrombosis (DVT) General Exam General appearance: alert, lethargic Head exam: Present: atraumatic, normocephalic, normal inspection Eye exam: Present: PERRL, EOMI, conjunctival injection. Absent: scleral icterus, periorbital swelling ENT exam: Present: normal exam, mucous membranes moist Neck exam: Present: normal inspection. Absent: tenderness, meningismus, lymphadenopathy Respiratory exam: Present: normal lung sounds bilaterally. Absent: respiratory distress, wheezes, rales, rhonchi, stridor Cardiovascular Exam: Present: normal rhythm, tachycardia, normal heart sounds. Absent: systolic murmur, diastolic murmur, rubs, gallop, clicks GI/Abdominal exam: Present: soft, normal bowel sounds. Absent: distended, tenderness, guarding, rebound, rigid Extremities exam: Present: normal inspection, full ROM, normal capillary refill. Absent: tenderness, pedal edema, joint swelling, calf tenderness Back exam: Present: normal inspection Neurological exam: Present: alert, CN II-XII intact Psychiatric exam: Present: normal affect, normal mood Skin exam: Present: warm, dry, intact, normal color. Absent: rash Course Vital Signs 02/24/25 02/24/25 02/24/25 13:42 14:47 17:05 Temperature 103.7 F H 100.1 F H 98.8 F Pulse Rate 101 H 86 85 Respiratory 24 20 20 Rate Blood Pressure 81/50 99/60 120/67 O2 Sat by Pulse 92 L 94 L 96 Oximetry 02/24/25 18:21 Temperature Pulse Rate 83 Respiratory 20 Rate Blood Pressure 128/68 O2 Sat by Pulse 96 Oximetry Medical Decision Making - Medical Decision Making Was pt. sent in by a medical professional or institution (, PA, ATHLETIC FIELD CUSTODIAN, urgent care, hospital, or group home...) When possible be specific @ -No Did you speak to anyone other than the patient for history (EMS, parent, family, police, friend...)? What history was obtained from this source @ -Spoke with the significant other for history Did you review nursing and triage notes (agree or disagree)? Why? @ -I reviewed and agree with nursing and triage notes Were old charts reviewed (outside hosp., previous admission, EMS record, old EKG, old radiological studies, urgent care reports/EKG's, group home records)? Report findings @ -I reviewed the chart from [facility] completed yesterday which diagnosed the patient with a kidney stone Differential Diagnosis (chest pain, altered mental status, abdominal pain women, abdominal pain men, vaginal bleeding, weakness, fever, dyspnea, syncope, headache, dizziness, GI bleed, back pain, seizure, CVA, palpatations, mental health, musculoskeletal)? @ -Differential Fever: Pneumonia, viral URI, endocarditis, myocarditis, pericarditis, otitis, sinusitis, peritonsillar Abscess, retropharyngeal Abscess, epiglottitis, peritonitis, appendicitis, Kari cystitis, diverticulitis, hepatitis, colitis, UTI, PID, TOA, pyelonephritis, prostatitis, epididymitis, meningitis, encephalitis, pulmonary embolism, CVA, thyroid storm, pancreatitis, adrenal crisis, cavernous sinus thrombosis, this is not meant to be an all-inclusive list. EKG interpreted by me (3pts min.). @ -Yes and demonstrates sinus rhythm with a rate of 91. VT interval 174. QRS 102. QTc of 405. No acute ST segment elevations or depressions X-rays interpreted by me (1pt min.). @ -Yes which demonstrates questionable pneumonia CT interpreted by me (1pt min.). @ -Yes which demonstrates a left-sided ureteral stone U/S interpreted by me (1pt. min.). @ -None done What testing was considered but not performed or refused? (CT, X-rays, U/S, labs)? Why? @ -None What meds were considered but not given or refused? Why? @ -None Did you discuss the management of the patient with other professionals (professionals i.e. , PA, ATHLETIC FIELD CUSTODIAN, lab, RT, psych nurse, manager social, printing agent, teacher, special officer, machine adjuster leader case trim)? Give summary @ -Spoke with Dr. Yang who was agreeable to take the patient to the OR for stent placement. Also spoke with Dr. Vanessa for admission Was smoking cessation discussed for >3mins.? @ -No Was critical care preformed (if so, how long)? @ -Yes, 35 minutes for management of sepsis due to UTI plus ureteral stone Were there social determinants of health that impacted care today? How? (Homelessness, low income, unemployed, alcoholism, drug addiction, transportation, low edu. Level, literacy, decrease access to med. care, senior care, rehab)? @ -No Was there de-escalation of care discussed even if they declined (Discuss DNR or withdrawal of care, Hospice)? DNR status @ -No What co-morbidities impacted this encounter? (DM, HTN, Smoking, COPD, CAD, Cancer, CVA, ARF, Chemo, Hep., AIDS, mental health diagnosis, sleep apnea, morbid obesity)? @ -Kidney stones, hypertension Was patient admitted / discharged? Hospital course, mention meds given and route, prescriptions, significant lab abnormalities, going to OR and other pertinent info. @ -Upon arrival patient seen and evaluated in bed 8. Thorough history and physical exam was performed. Patient placed on continuous pulse ox and cardiac monitoring. He does meet sepsis criteria therefore he is given a 2500 cc bolus of lactated Ringer's which is appropriate for his ideal body weight-based sepsis bolus. He is given additional Tylenol 325 mg. Blood cultures are obtained. Patient given Rocephin. Laboratory studies are conducted. Patient has elevated white blood cell count as well as kidney function. CT was performed which demonstrates a left-sided ureteral stone. Discussed the results with the patient and with Dr. Yang. He will take the patient to the OR for stent placement. He does request placement to medicine. I did speak with Dr. Vanessa for admssion. Undiagnosed new problem with uncertain prognosis? @ -No Drug Therapy requiring intensive monitoring for toxicity (Heparin, Nitro, Insulin, Cardizem)? @ -No Were any procedures done? @ -No Diagnosis/symptom? @ -Acute encephalopathy, pyrexia, UTI with sepsis, left ureteral stone/septic stone, MONTY, lactic acidosis Acute, or Chronic, or Acute on Chronic? @ -Acute Uncomplicated (without systemic symptoms) or Complicated (systemic symptoms)? @ -Complicated Side effects of treatment? @ -No Exacerbation, Progression, or Severe Exacerbation? @ -No Poses a threat to life or bodily function? How? (Chest pain, [place], [place], pneumonia, PE, COPD, DKA, ARF, appy, cholecystitis, CVA, Diverticulitis, Homicidal, Suicidal, threat to staff... and all critical care pts) @ -Yes this patient does meet severe sepsis criteria - Lab Data Result diagrams: 02/24/25 14:14 02/24/25 14:14 Lab Results 02/24/25 02/24/25 02/24/25 Range/Units 14:14 14:14 14:14 WBC 14.41 H (4.50-10.00) 10*3/uL RBC 5.63 H (4.40-5.60) 10*6/uL Hgb 15.6 (13.0-17.0) g/dL Hct 47.4 (39.6-50.0) % MCV 84.2 (80.0-97.0) fL MCH 27.7 (27.0-32.0) pg MCHC 32.9 (32.0-37.0) g/dL Plt Count 140 (140-440) 10*3/uL MPV 10.2 (9.5-12.2) fL Immature Gran % (Auto) 0.3 % Neutrophils % 95.8 % Lymphocytes % 0.9 % Monocytes % 2.6 % Eosinophils % 0.0 % Basophils % 0.4 % Immature Gran # 0.05 H (0.00-0.04) 10*3/uL Neutrophils # 13.79 H (1.80-7.70) 10*3/uL Lymphocytes # 0.13 L (0.90-5.00) 10*3/uL Monocytes # 0.38 (0.20-1.00) 10*3/uL Eosinophils # 0.00 L (0.04-0.35) 10*3/uL Basophils # 0.06 (0.00-0.10) 10*3/uL Manual Slide Review Performed Sodium 138 (137-145) mmol/L Potassium 4.4 (3.5-5.1) mmol/L Chloride 105 (98-107) mmol/L Carbon Dioxide 16 L (22-30) mmol/L Anion Gap 17 mmol/L BUN 34 H (9-20) mg/dL Creatinine 2.21 H (0.66-1.25) mg/dL Est GFR (CKD-EPI)AfAm 32 (>60 ml/min/1.73 sqM) Est GFR (CKD-EPI)NonAf 28 (>60 ml/min/1.73 sqM) Glucose 248 H (74-99) mg/dL Lactic Ac Sepsis Rflx Plasma Lactic Acid Shukri 3.2 H* (0.7-2.0) mmol/L Calcium 9.4 (8.4-10.2) mg/dL Total Bilirubin 1.7 H (0.2-1.3) mg/dL AST 37 (17-59) U/L ALT 28 (4-49) U/L Alkaline Phosphatase 78 (38-126) U/L NT-Pro-B Natriuret Pep 2880 pg/mL Total Protein 6.6 (6.3-8.2) g/dL Albumin 3.8 (3.5-5.0) g/dL Urine Color Urine Appearance (Clear) Urine pH (5.0-8.0) Ur Specific [place] (1.001-1.035) Urine Protein (Negative) Urine Glucose (UA) (Negative) Urine Ketones (Negative) Urine Blood (Negative) Urine Nitrite (Negative) Urine Bilirubin (Negative) Urine Urobilinogen (<2.0) mg/dL Ur Leukocyte Esterase (Negative) Urine RBC (0-5) /hpf Urine WBC (0-5) /hpf Ur Squamous Epith Cells (0-4) /hpf Calcium Oxalate Crystal (None) /hpf Urine Bacteria (None) /hpf Urine Yeast (Budding) (None) /hpf 02/24/25 02/24/25 02/24/25 Range/Units 14:47 15:43 17:15 WBC (4.50-10.00) 10*3/uL RBC (4.40-5.60) 10*6/uL Hgb (13.0-17.0) g/dL Hct (39.6-50.0) % MCV (80.0-97.0) fL MCH (27.0-32.0) pg MCHC (32.0-37.0) g/dL Plt Count (140-440) 10*3/uL MPV (9.5-12.2) fL Immature Gran % (Auto) % Neutrophils % % Lymphocytes % % Monocytes % % Eosinophils % % Basophils % % Immature Gran # (0.00-0.04) 10*3/uL Neutrophils # (1.80-7.70) 10*3/uL Lymphocytes # (0.90-5.00) 10*3/uL Monocytes # (0.20-1.00) 10*3/uL Eosinophils # (0.04-0.35) 10*3/uL Basophils # (0.00-0.10) 10*3/uL Manual Slide Review Sodium (137-145) mmol/L Potassium (3.5-5.1) mmol/L Chloride (98-107) mmol/L Carbon Dioxide (22-30) mmol/L Anion Gap mmol/L BUN (9-20) mg/dL Creatinine (0.66-1.25) mg/dL Est GFR (CKD-EPI)AfAm (>60 ml/min/1.73 sqM) Est GFR (CKD-EPI)NonAf (>60 ml/min/1.73 sqM) Glucose (74-99) mg/dL Lactic Ac Sepsis Rflx Y Plasma Lactic Acid Shukri 4.8 H* (0.7-2.0) mmol/L Calcium (8.4-10.2) mg/dL Total Bilirubin (0.2-1.3) mg/dL AST (17-59) U/L ALT (4-49) U/L Alkaline Phosphatase (38-126) U/L NT-Pro-B Natriuret Pep pg/mL Total Protein (6.3-8.2) g/dL Albumin (3.5-5.0) g/dL Urine Color Yellow Urine Appearance Cloudy (Clear) Urine pH 5.0 (5.0-8.0) Ur Specific [place] 1.037 H (1.001-1.035) Urine Protein Negative (Negative) Urine Glucose (UA) 4+ H (Negative) Urine Ketones Negative (Negative) Urine Blood Moderate H (Negative) Urine Nitrite Negative (Negative) Urine Bilirubin Negative (Negative) Urine Urobilinogen <2.0 (<2.0) mg/dL Ur Leukocyte Esterase Large H (Negative) Urine RBC 40 H (0-5) /hpf Urine WBC >182 H (0-5) /hpf Ur Squamous Epith Cells 2 (0-4) /hpf Calcium Oxalate Crystal Rare H (None) /hpf Urine Bacteria Many H (None) /hpf Urine Yeast (Budding) Moderate H (None) /hpf Disposition Clinical Impression: UTI (urinary tract infection), Sepsis, Ureteral stone with hydronephrosis, MONTY (acute kidney injury), Leukocytosis, Lactic acidosis Disposition: ADMITTED IP TO THIS [facility] Condition: Serious Is patient prescribed a controlled substance at d/c from ED?: No Time of Disposition: 17:59 Decision to Admit Reason: Admit from EC Decision Date: 02/24/25 Decision Time: 17:59
[2025-02-24] MEDS: LACTATED RINGERS 1,000 ML IV SCH (14:16)
[2025-02-24 14:31] LABS: Basophils # (A) 0.06 10*3/uL (0.00-0.10); Basophils % (A) 0.4 %; Eosinophils # (A) 0.00 10*3/uL (0.04-0.35); Eosinophils % (A) 0.0 %; HCT 47.4 % (39.6-50.0); HGB 15.6 g/dL (13.0-17.0); Lymphocytes # (A) 0.13 10*3/uL (0.90-5.00); Lymphocytes % (A) 0.9 %; MCH 27.7 pg (27.0-32.0); MCHC 32.9 g/dL (32.0-37.0); MCV 84.2 fL (80.0-97.0); Monocytes # (A) 0.38 10*3/uL (0.20-1.00); Monocytes % (A) 2.6 %; Neutrophils # (A) 13.79 10*3/uL (1.80-7.70); Neutrophils % (A) 95.8 %; RBC 5.63 10*6/uL (4.40-5.60); RDW 14.5 % (11.5-14.5); WBC 14.41 10*3/uL (4.50-10.00)
[2025-02-24 14:47] LABS: ALT 28 U/L (4-49); African American GFR (CKD) 32 (>60 ml/min/1.73 sqM); Albumin 3.8 g/dL (3.5-5.0); Anion Gap 17 mmol/L; Blood Urea Nitrogen 34 mg/dL (9-20); Calcium 9.4 mg/dL (8.4-10.2); Carbon Dioxide 16 mmol/L (22-30); Chloride 105 mmol/L (98-107); Glucose 248 mg/dL (74-99); Non-African American GFR(CKD) 28 (>60 ml/min/1.73 sqM); Sodium 138 mmol/L (137-145); Total Protein 6.6 g/dL (6.3-8.2)
[2025-02-24 14:49] LABS: AST 37 U/L (17-59); Alkaline Phosphatase 78 U/L (38-126); Potassium 4.4 mmol/L (3.5-5.1)
[2025-02-24 14:55] LABS: NT-Pro-B-Type Natriuretic Pept 2880 pg/mL
--- NOTE | 2025-02-24 15:12 | XR ---
EXAMINATION TYPE: XR chest 2V DATE OF EXAM: 02/24/2025 3:07 PM COMPARISON: None CLINICAL INDICATION: Male, 80 years old with history of Fever, , TECHNIQUE: Frontal and lateral views FINDINGS: Heart upper limits of normal in size. Diffuse interstitial densities. Patchy posterior basilar opacit y on the lateral view. No sizable pleural effusion. IMPRESSION: 1. Borderline heart size. 2. Diffuse interstitial densities. Correlate for pulmonary vascular congestion versus bronchitis vers us atypical pneumonias. 3. More focal patchy atelectasis versus infiltrate at the posterior lung base on the lateral view. [facility], Workstation: Alana-HELEN, 02/24/2025 3:10 PM
[2025-02-24 15:15] LABS: Platelet Count 140 10*3/uL (140-440)
[2025-02-24 16:16] LABS: Bacteria,Urine Many /hpf; Bilirubin,Urine Negative (Negative); Blood,Urine Moderate (Negative); Budding Yeast,Urine Moderate /hpf; Calcium Oxalate Crystals,Urine Rare /hpf; Color,Urine Yellow; Glucose,Urine (UA) 4+ (Negative); Ketones,Urine Negative (Negative); Leukocyte Esterase,Urine Large (Negative); Nitrite,Urine Negative (Negative); PH, Urine 5.0 (5.0-8.0); Protein,Urine Negative (Negative); RBC,Urine 40 /hpf (0-5); Specific Gravity,Urine 1.037 (1.001-1.035); Squamous Epithelial Cell,Urine 2 /hpf (0-4); Urobilinogen,Urine <2.0 mg/dL (<2.0); WBC,Urine >182 /hpf (0-5)
--- NOTE | 2025-02-24 16:46 | CT ---
EXAMINATION TYPE: CT brain wo con CT DLP: 1170.4 mGycm, Automated exposure control for dose reduction was used. DATE OF EXAM: 02/24/2025 4:38 PM COMPARISON: None. CLINICAL INDICATION:Male, 80 years old with history of ams, ams, sepsis TECHNIQUE: Brain: Multiple axial CT images of the brain were obtained without IV contrast. . Coronal and sagitta l reformats reviewed. FINDINGS: Brain: Extra-axial spaces: No abnormal extra-axial fluid collections. Ventricular system: Mild dilatation of the ventricular system Cerebral parenchyma: Mild cerebral atrophy. No acute intraparenchymal hemorrhage or mass effect. The arnett-white junction is well differentiated. Cerebellum: Unremarkable. Mass effect: No evidence of midline shift. Intracranial vasculature: Atherosclerotic calcifications of the intracranial vessels. Soft tissues: Normal. Calvarium/osseous structures: No depressed skull fracture. Paranasal sinuses and mastoid air cells: The mastoid air cells are clear. Minimal mucosal thickening in the ethmoid sinuses. The remaining paranasal sinuses are clear. Nasal septal deviation with spurri ng to the right. Visualized orbits: Bilateral aphakia IMPRESSION: 1. No acute intracranial hemorrhage. 2. Mild dilatation of the ventricular system which could be related to level of cerebral atrophy wit h normal pressure hydrocephalus not excluded. Correlate clinically. [facility], , 02/24/2025 4:44 PM
--- NOTE | 2025-02-24 17:01 | CT ---
EXAMINATION TYPE: CT abdomen pelvis wo con CT DLP: 901.2 mGycm, Automated exposure control for dose reduction was used. DATE OF EXAM: 02/24/2025 4:38 PM COMPARISON: CT abdomen pelvis 02/17/2025, 01/28/2024 CLINICAL INDICATION:Male, 80 years old with history of septic stone?; ams, sepsis TECHNIQUE: Standard CT of the abdomen and pelvis without IV or oral contrast. Lack of IV or oral co ntrast limits evaluation of solid and hollow organ viscera. Coronal and sagittal reformats were perfo rmed. FINDINGS: LOWER CHEST: Posterior dependent subsegmental atelectasis is noted. ABDOMEN LIVER: Mildly enlarged measuring 21.6 cm in CC dimension. GALLBLADDER AND BILE DUCTS: Small gallstone identified. No surrounding inflammatory changes. No bilia ry duct dilatation. PANCREAS: Mild atrophy. Stable 1.7 cm pancreatic head soft tissue mass. No pancreatic duct dilatation . SPLEEN: Mildly enlarged measuring 14.5 cm in CC dimension. ADRENAL GLANDS: Unremarkable noncontrast appearance KIDNEYS AND URETERS: Right-sided hydronephrosis. Mild left hydroureteronephrosis. Contrast is demons trated within both collecting systems and throughout both ureters without obstruction. Stable right r enal upper pole nonobstructing 6 mm calculus. Stable left renal upper pole 5 mm calculus. Previously seen left renal lower pole calculus has now migrated into the upper left ureter measuring approximate ly 7 mm. Contrast does pass this within the ureter. Simple right renal lower exophytic stable 2.2 cm cyst. No follow-up recommended. Increased left perinephric fat stranding changes. No organized fluid collection. PELVIS BLADDER: Contrast-filled with single focus of nondependent gas. No filling defect identified or urete ral calculus definitively visualized. Gas is likely from recent instrumentation. Some trace perivesic ular fat stranding identified. REPRODUCTIVE: Prostate is enlarged in size measuring 5.4 cm in transverse dimension. ABDOMEN & PELVIS STOMACH AND BOWEL: Stomach and duodenum are unremarkable. Residual contrast material identified withi n the colon. No inflammatory changes within the appendix which demonstrates some hyperdense material. No focal bowel wall thickening or surrounding inflammatory changes. No evidence of bowel obstruction . PERITONEUM: No evidence of pneumoperitoneum or free fluid. VASCULATURE: Moderate atherosclerotic calcifications are present throughout the abdominal aorta and i ts branches. No evidence of aortic aneurysm. MUSCULOSKELETAL: No acute osseous abnormalities. Moderate multilevel degenerative disc disease. Grade 1 retrolisthesis of L3 on L4. Prominent Schmorl's node involving the superior endplate of the L2 joslyn tebral body. LYMPH NODES: No evidence for lymphadenopathy. SOFT TISSUE/ABDOMINAL WALL: Unremarkable IMPRESSION: 1. Mild left hydroureteronephrosis with a 7 mm calculus within the upper left ureter. Contrast is de monstrated within both collecting systems and throughout both ureters pass the calculus. Nonobstructi ng bilateral renal calculi. 2. Contrast filled urinary bladder without filling defect. Single focus of nondependent gas. Trace pe rivesicular fat stranding. Findings suggest recent instrumentation versus cystitis. Correlate with ur inalysis. 3. Cholelithiasis. 4. Mild hepatosplenomegaly. 5. Stable pancreatic head soft tissue mass dating back to 2017. Consider further evaluation with MRI MRCP as clinically indicated. Given stability probably benign. [facility], , 02/24/2025 4:59 PM
[2025-02-24] MEDS ORDERED: ONDANSETRON 4 MG/2 ML VIAL IVP PRN (18:00)
[2025-02-24] MEDS ORDERED: NALOXONE 0.4 MG/ML 1 ML VIAL IV PRN (18:00)
--- NOTE | 2025-02-24 18:16 | P.GSCN ---
History of Present Illness Consult date: 02/24/25 Reason for Consult: Left ureteral stone History of present illness: This is a 80-year-old male presents to the hospital with altered mental status associated with fevers and chills. He was recently seen at [place], was diagnosed with an obstructive ureteral stone and was discharged home. Of note no urinalysis was obtained during the ER presentation. Presented back this morning with fevers chills progressive weakness and altered mental status. Also experiencing left flank pain associate with nausea and vomiting. Denies any dysuria or gross hematuria. He underwent a CT abdomen and pelvis in the ER that showed evidence of a 7 mm stone with hydronephrosis. Patient was febrile at 103 and hypotensive on presentation. Also has been having rising lactate at 4.8. No previous history of kidney stones. He is a known patient to Dr. Mccartney follows up with him for management of bladder cancer and testicular cancer. Review of Systems ROS unobtainable: due to mental status Past Medical History Past Medical History: Cancer, COPD, Diabetes Mellitus, Eye Disorder, GERD/Reflux, Hyperlipidemia, Hypertension, Prostate Disorder, Sleep Apnea/CPAP/BIPAP Additional Past Medical History / Comment(s): hx colon and testicular cancer, ne uropathy, uses cpap, MIGRAINE HEADACHE, KIDNEY STONES History of Any Multi-Drug Resistant Organisms: None Reported Past Surgical History: Bowel Resection, Joint Replacement Additional Past Surgical History / Comment(s): lt testicle removed, bilateral cataracts removed, total right knee Past Anesthesia/Blood Transfusion Reactions: No Reported Reaction Past Psychological History: Depression Smoking Status: Former smoker Past Alcohol Use History: None Reported Past Drug Use History: None Reported - Past Family History Mother Family Medical History: Deep Vein Thrombosis (DVT) Medications and Allergies Home Medications Medication Instructions Recorded Confirmed Type Ascorbic Acid [Vitamin C] 500 mg PO HS 10/01/17 02/24/25 History Ezetimibe [Zetia] 10 mg PO DAILY 10/01/17 02/24/25 History Gabapentin 600 mg PO TID 10/01/17 02/24/25 History Multivitamins, Thera [Multivitamin 1 tab PO DAILY 10/01/17 02/24/25 History (formulary)] [place]-3 Fatty Acids/Fish Oil [Fish 1 cap PO HS 10/01/17 02/24/25 History Oil 1,000 mg Softgel] Prostate Herbal Combo 1 tab PO BID 10/01/17 02/24/25 History Testosterone [Androgel 1.62% Gel 1 applic TOPICAL DAILY 10/01/17 02/24/25 Histor y Pump] Zolpidem [Ambien] 5 mg PO HS PRN 10/01/17 02/24/25 History gemfibroziL [Lopid] 600 mg PO BID 10/01/17 02/24/25 History Empagliflozin [Jardiance] 25 mg PO DAILY 09/10/19 02/24/25 History Omeprazole [PriLOSEC] 20 mg PO BID 09/10/19 02/24/25 History Cinnamon Bark [Cinnamon] 500 mg PO BID 02/24/25 02/24/25 History EPINEPHrine (Auto Inject) [Epipen] 0.3 mg IM ONCE PRN 02/24/25 02/24/25 History Ergocalciferol [Vitamin D2 (1250 1,250 mcg PO TH 02/24/25 02/24/25 History Mcg = 07497 Iu)] HYDROcodone/APAP 5-325MG [[place] 1 tab PO BID PRN 02/24/25 02/24/25 History 5-325] Insulin Glargine,Hum.rec.anlog 30 units SQ DAILY 02/24/25 02/24/25 History [Lantus Solostar Pen] Ondansetron [Zofran] 4 mg PO BID PRN 02/24/25 02/24/25 History Tirzepatide [Mounjaro] 12.5 mg SQ TU 02/24/25 02/24/25 History Allergies Allergy/AdvReac Type Severity Reaction Status Date / Time atomoxetine [From Strattera] Allergy Unknown Verified 02/24/25 16:08 fenofibrate [From Tricor] Allergy Anaphylaxis Verified 02/24/25 16:08 glipizide Allergy Unknown Verified 02/24/25 16:08 latex Allergy reddened Verified 02/24/25 16:08 skin mold Allergy swollen Verified 02/24/25 16:08 eyes and sneezing Penicillins Allergy Rash/Hives Verified 02/24/25 16:08 pravastatin Allergy Unknown Verified 02/24/25 16:08 rosuvastatin [From Crestor] Allergy Rash/Hives Verified 02/24/25 16:08 Sulfa (Sulfonamide Allergy Anaphylaxis Verified 02/24/25 16:08 Antibiotics) dapagliflozin [From [facility]] AdvReac Unknown Verified 02/24/25 16:08 Rfkmcia-DOD-JrJ Reductase AdvReac stomach Verified 02/24/25 16:08 Inhibitor cramping, [Yrrzsyp-Bry-Fau Reductase agitation Inhibitor] Surgical - Exam Vital Signs Temp Pulse Resp BP Pulse Ox 103.7 F H 101 H 24 81/50 92 L 02/24/25 13:42 02/24/25 13:42 02/24/25 13:42 02/24/25 13:42 02/24/25 13:42 - General severe distress, moderate pain - ENT normal nares, normal mucosa - Respiratory normal expansion, normal respiratory effort - Abdomen Abdomen: soft, non tender, no distended Results - Labs 02/24/25 14:14 02/24/25 14:14 Abnormal Lab Results - Last 24 Hours (Table) 02/24/25 02/24/25 02/24/25 Range/Units 14:14 14:14 14:14 WBC 14.41 H (4.50-10.00) 10*3/uL RBC 5.63 H (4.40-5.60) 10*6/uL Immature Gran # 0.05 H (0.00-0.04) 10*3/uL Neutrophils # 13.79 H (1.80-7.70) 10*3/uL Lymphocytes # 0.13 L (0.90-5.00) 10*3/uL Eosinophils # 0.00 L (0.04-0.35) 10*3/uL Carbon Dioxide 16 L (22-30) mmol/L BUN 34 H (9-20) mg/dL Creatinine 2.21 H (0.66-1.25) mg/dL Glucose 248 H (74-99) mg/dL Plasma Lactic Acid Shukri 3.2 H* (0.7-2.0) mmol/L Total Bilirubin 1.7 H (0.2-1.3) mg/dL Ur Specific [place] (1.001-1.035) Urine Glucose (UA) (Negative) Urine Blood (Negative) Ur Leukocyte Esterase (Negative) Urine RBC (0-5) /hpf Urine WBC (0-5) /hpf Calcium Oxalate Crystal (None) /hpf Urine Bacteria (None) /hpf Urine Yeast (Budding) (None) /hpf 02/24/25 02/24/25 Range/Units 15:43 17:15 WBC (4.50-10.00) 10*3/uL RBC (4.40-5.60) 10*6/uL Immature Gran # (0.00-0.04) 10*3/uL Neutrophils # (1.80-7.70) 10*3/uL Lymphocytes # (0.90-5.00) 10*3/uL Eosinophils # (0.04-0.35) 10*3/uL Carbon Dioxide (22-30) mmol/L BUN (9-20) mg/dL Creatinine (0.66-1.25) mg/dL Glucose (74-99) mg/dL Plasma Lactic Acid Shukri 4.8 H* (0.7-2.0) mmol/L Total Bilirubin (0.2-1.3) mg/dL Ur Specific [place] 1.037 H (1.001-1.035) Urine Glucose (UA) 4+ H (Negative) Urine Blood Moderate H (Negative) Ur Leukocyte Esterase Large H (Negative) Urine RBC 40 H (0-5) /hpf Urine WBC >182 H (0-5) /hpf Calcium Oxalate Crystal Rare H (None) /hpf Urine Bacteria Many H (None) /hpf Urine Yeast (Budding) Moderate H (None) /hpf Diabetes panel 02/24/25 Range/Units 14:14 Sodium 138 (137-145) mmol/L Potassium 4.4 (3.5-5.1) mmol/L Chloride 105 (98-107) mmol/L Carbon Dioxide 16 L (22-30) mmol/L BUN 34 H (9-20) mg/dL Creatinine 2.21 H (0.66-1.25) mg/dL Glucose 248 H (74-99) mg/dL Calcium 9.4 (8.4-10.2) mg/dL AST 37 (17-59) U/L ALT 28 (4-49) U/L Alkaline Phosphatase 78 (38-126) U/L Total Protein 6.6 (6.3-8.2) g/dL Albumin 3.8 (3.5-5.0) g/dL Calcium panel 02/24/25 Range/Units 14:14 Calcium 9.4 (8.4-10.2) mg/dL Albumin 3.8 (3.5-5.0) g/dL Pituitary panel 02/24/25 Range/Units 14:14 Sodium 138 (137-145) mmol/L Potassium 4.4 (3.5-5.1) mmol/L Chloride 105 (98-107) mmol/L Carbon Dioxide 16 L (22-30) mmol/L BUN 34 H (9-20) mg/dL Creatinine 2.21 H (0.66-1.25) mg/dL Glucose 248 H (74-99) mg/dL Calcium 9.4 (8.4-10.2) mg/dL Adrenal panel 02/24/25 Range/Units 14:14 Sodium 138 (137-145) mmol/L Potassium 4.4 (3.5-5.1) mmol/L Chloride 105 (98-107) mmol/L Carbon Dioxide 16 L (22-30) mmol/L BUN 34 H (9-20) mg/dL Creatinine 2.21 H (0.66-1.25) mg/dL Glucose 248 H (74-99) mg/dL Calcium 9.4 (8.4-10.2) mg/dL Total Bilirubin 1.7 H (0.2-1.3) mg/dL AST 37 (17-59) U/L ALT 28 (4-49) U/L Alkaline Phosphatase 78 (38-126) U/L Total Protein 6.6 (6.3-8.2) g/dL Albumin 3.8 (3.5-5.0) g/dL Assessment and Plan Assessment: 80-year-old male presents with a 7 mm left-sided septic ureteral stone. Patient is hypotensive febrile with a rising lactate on presentation. Discussed with patient and his given the evidence of the obstructive stone and sepsis I do recommend proceeding with a cystoscopy and ureteral stent insertion. Risk- benefit and rationale was discussed with him in detail. I did discuss ev entually he will require left-sided ureteroscopy with holmium laser as an outpatient once his sepsis resolves N.p.o. OR for cystoscopy and left-sided stent insertion
[2025-02-24 18:40] LABS: Glucose,Whole Blood 220 mg/dL (70-110)
[2025-02-24] MEDS ORDERED: fentaNYL (PF) 50 MCG/ML 2 ML AMP ONE (18:47)
[2025-02-24] MEDS: LACTATED RINGERS 1,000 ML IV ONE (18:47)
[2025-02-24] MEDS ORDERED: PROPOFOL 10 MG/ML 20 ML VIAL IV ONE (18:47)
[2025-02-24] MEDS ORDERED: LIDOCAINE 1% INJ 10MG/ML (20 ML MDV) ONE (18:47)
[2025-02-24] MEDS ORDERED: SUCCINYLCHOLINE CHLORIDE 200 MG/10 ML VIAL IV ONE (18:47)
[2025-02-24] MEDS: SODIUM CHLORIDE 0.9% 50 ML with ceFAZolin 2,000 MG IV ONE (19:06)
--- NOTE | 2025-02-24 19:15 | P.OP ---
Date of Procedure: 02/24/25 Preoperative Diagnosis: Left ureteral stone Postoperative Diagnosis: Same Procedure(s) Performed: Cystoscopy and left stent insertion Implants: 6 [place] by 24 cm stent in the left ureter Anesthesia: SAM Surgeon: Oskar Yang Estimated Blood Loss (ml): 1 Pathology: none sent Condition: stable Indications for Procedure: 80-year-old male presents with a 7 mm left-sided septic ureteral stone. Patient is hypotensive febrile with a rising lactate on presentation. Discussed with patient and his given the evidence of the obstructive stone and sepsis I do recommend proceeding with a cystoscopy and ureteral stent insertion. Risk- benefit and rationale was discussed with him in detail. I did discuss eventually he will require left-sided ureteroscopy with holmium laser as an outpatient once his sepsis resolves Description of Procedure: Patient brought the operating, general anesthesia was induced. He was prepped and draped in sterile fashion and placed in a dorsolithotomy position. Cystoscopy through the 22 [place] sheath was inserted per urethra, brief cystoscopy was performed showed no abnormality within the bladder. The left ureteral orifice was visualized and intubated with a sensor wire, the wire was advanced under fluoroscopy into the kidney. Next a ureteral stent was passed over the wire, the proximal curl was visualized on fluoroscopy and the distal curl was visualized using cystoscope. Cloudy urine was seen draining from the collecting system. A 18 [place] Padilla catheter was placed at the end of the case. Patient tolerated procedure well was taken to recovery in guarded condition
[2025-02-24] MEDS: IPRATROPIUM-ALBUTEROL 3 ML NEB INHALATION STA (19:30)
[2025-02-24] MEDS: diphenhydrAMINE 50 MG/ML 1 ML VIAL IVP STA (19:34)
--- NOTE | 2025-02-24 19:36 | FL ---
EXAMINATION TYPE: FL guidance operating room Intraoperative/procedural fluoroscopic services were pro vided. CLINICAL INDICATION:Male, 80 years old with history of LEFT SIDE STENT PLACEMENT; , [facility] FINDINGS: Fluoroscopic images demonstrating left ureteral stent placement. No radiographic evidence for complic ation. Total fluoroscopy time is 3.3 seconds. DAP: 0.3378 Gycm2 Please see the operative/procedural note for further details. [facility], , 02/24/2025 7:34 PM
[2025-02-24] MEDS: ACETAMINOPHEN IV (For NPO) 1,000 MG in EMPTY BAG 1 BAG IVPB STA (19:42)
[2025-02-24] MEDS: DEXAMETHASONE SOD PHOSPHATE 10 MG/ML 1 ML VIAL IVP STA (19:50)
[2025-02-25] MEDS: GABAPENTIN 300 MG CAP PO SCH ×2 (00:19→15:03)
[2025-02-25] MEDS: SODIUM CHLORIDE 0.9% 1,000 ML IV SCH (00:20)
[2025-02-25] MEDS ORDERED: DEXTROSE 50% SYRINGE 50 ML IVP PRN ×4 (01:22→09:43)
[2025-02-25 06:39] LABS: Glucose,Whole Blood 194 mg/dL (70-110)
[2025-02-25] MEDS: INSULIN LISPRO (HumaLOG) 100 UNIT/ML 10 mL VL SQ SCH (06:41)
[2025-02-25 07:23] LABS: Basophils # (A) 0.02 10*3/uL (0.00-0.10); Basophils % (A) 0.2 %; Eosinophils # (A) 0.00 10*3/uL (0.04-0.35); Eosinophils % (A) 0.0 %; HCT 44.4 % (39.6-50.0); HGB 14.4 g/dL (13.0-17.0); Immature Platelet Fraction 2.4 % (1.1-6.1); Lymphocytes # (A) 0.17 10*3/uL (0.90-5.00); Lymphocytes % (A) 1.7 %; MCH 27.4 pg (27.0-32.0); MCHC 32.4 g/dL (32.0-37.0); MCV 84.4 fL (80.0-97.0); Monocytes # (A) 0.19 10*3/uL (0.20-1.00); Monocytes % (A) 1.9 %; Neutrophils # (A) 9.58 10*3/uL (1.80-7.70); Neutrophils % (A) 95.9 %; Platelet Count 126 10*3/uL (140-440); RBC 5.26 10*6/uL (4.40-5.60); RDW 14.5 % (11.5-14.5); WBC 9.99 10*3/uL (4.50-10.00)
[2025-02-25 07:39] LABS: African American GFR (CKD) 47 (>60 ml/min/1.73 sqM); Anion Gap 10 mmol/L; Blood Urea Nitrogen 36 mg/dL (9-20); Calcium 8.5 mg/dL (8.4-10.2); Carbon Dioxide 22 mmol/L (22-30); Chloride 108 mmol/L (98-107); Glucose 196 mg/dL (74-99); Non-African American GFR(CKD) 41 (>60 ml/min/1.73 sqM); Potassium 3.9 mmol/L (3.5-5.1); Sodium 140 mmol/L (137-145)
[2025-02-25 07:52] LABS: INR 1.2 (<1.2); Partial Thromboplastin Time 26.5 sec (22.0-30.0); Prothrombin Time 12.9 sec (10.0-12.5)
[2025-02-25] MEDS: ACETAMINOPHEN TAB 325 MG TAB PO PRN (08:29)
[2025-02-25] MEDS: FUROSEMIDE 10 MG/ML 2 ML VIAL IV ONE (09:57)
[2025-02-25] MEDS: NON FORMULARY DRUG (Gemfibrozil 600 MG Tab) PO SCH (10:18)
[2025-02-25 11:42] LABS: Glucose,Whole Blood 218 mg/dL (70-110)
--- NOTE | 2025-02-25 13:35 | P.HPIM ---
History of Present Illness H&P Date: 02/25/25 History of present illness; patient 80-year-old gentleman with past medical history significant for insulin-dependent diabetes mellitus, bladder cancer presented the ER because of altered mental status. Patient was all right yesterday when he was complaining of some left flank pain, at that time patient went to stand-alone ER in [place], they did a CT scan showing left ureteral stone, patient was discharged on medications and was told to follow-up outpatient with his urologist. On coming back home patient continues to had flank pain, patient was getting more confused. Patient started spiking fevers and was complaining of chills. Because of the symptoms, EMS was called and the right, patient was found to be short of breath. Patient brought to the ER at [place] Initial lab work done in the ER showed WBC 14.41, hemoglobin 3.6, platelet count 140, sodium 130, potassium 4.4, BUN 34, creatinine 2.21, lactate 3.2, bilirubin 1.7, AST 37, ALT 28, proBNP 2880 UA done showed large amount of leukocyte Estrace,Urine WBC 182, Chest x-ray done in the ER showed diffuse interstitial densities, correlate for pulmonary congestion versus bronchitis versus atypical pneumonia CT head done showed no acute intracranial process, mild elevation of the ventricular system which may be related to level of subdural prophy with normal pressure hydrocephalus not excluded CT abdominal pelvis done showed mild left hydroureteronephrosis with a 7 mm calculus in the upper left ureter, nonobstructing bilateral renal calculi. Contrast filled urinary bladder without filling defect Patient admitted to internal medicine service REVIEW OF SYSTEMS: CONSTITUTIONAL: No fever, no malaise, no fatigue. HEENT: No recent visual problems or hearing problems. Denied any sore throat. CARDIOVASCULAR: No chest pain, orthopnea, PND, no palpitations, no syncope. PULMONARY: As mentioned above GASTROINTESTINAL: As mentioned above NEUROLOGICAL: No headaches, no weakness, no numbness. HEMATOLOGICAL: Denies any bleeding or petechiae. GENITOURINARY: Denies any burning micturition, frequency, or urgency. MUSCULOSKELETAL/RHEUMATOLOGICAL: Denies any joint pain, swelling, or any muscle pain. ENDOCRINE: Denies any polyuria or polydipsia. The rest of the 14-point review of systems is negative. PHYSICAL EXAMINATION: GENERAL: The patient is alert and oriented x3, not in any acute distress. Well developed, well nourished. HEENT: Pupils are round and equally reacting to light. EOMI. No scleral icterus. No conjunctival pallor. Normocephalic, atraumatic. No pharyngeal erythema. No thyromegaly. CARDIOVASCULAR: S1 and S2 present. No murmurs, rubs, or gallops. PULMONARY: Chest is clear to auscultation, no wheezing or crackles. ABDOMEN: Soft, nontender, nondistended, normoactive bowel sounds. No palpable organomegaly. MUSCULOSKELETAL: No joint swelling or deformity. EXTREMITIES: No cyanosis, clubbing, or pedal edema. NEUROLOGICAL: Gross neurological examination did not reveal any focal deficits. SKIN: No rashes. Assessment and plan Sepsis Acute infectious encephalopathy Lactic acidosis Acute kidney injury Left hydroureteronephrosis Left ureteric stone Acute hypoxic respiratory failure History of bladder cancer History of diabetes mellitus Monitor vital signs Monitor CBC Monitor CMP Continue telemetry monitoring Ordered blood cultures Order urine cultures Ordered serial lactate Ordered IV fluids Ordered IV Rocephin Urology were consulted, patient underwent cystoscopy with left stent insertion. Ordered blood glucose monitoring, sliding scale insulin. Consult ID Labs and medication were reviewed.. Continue same treatment. Continue with symptomatic treatment. Resume home medication. Monitor labs and vitals. DVT and GI prophylaxis. Further recommendations as per clinical course of the patient Dictation was produced using [employer] dictation software. please excuse any gra mmatical, word or spelling errors. Past Medical History Past Medical History: Cancer, COPD, Diabetes Mellitus, Eye Disorder, GERD/Reflux, Hyperlipidemia, Hypertension, Prostate Disorder, Sleep Apnea/CPAP/BIPAP Additional Past Medical History / Comment(s): hx colon and testicular cancer, neuropathy, uses cpap, MIGRAINE HEADACHE, KIDNEY STONES History of Any Multi-Drug Resistant Organisms: None Reported Past Surgical History: Bowel Resection, Joint Replacement Additional Past Surgical History / Comment(s): lt testicle removed, bilateral cataracts removed, total right knee Past Anesthesia/Blood Transfusion Reactions: No Reported Reaction Past Psychological History: Depression Additional Psychological History / Comment(s): PAST HISTORY Smoking Status: Former smoker Past Alcohol Use History: None Reported Additional Past Alcohol Use History / Comment(s): smoked age [age] SMOKED 1ppd Past Drug Use History: None Reported - Past Family History Mother Family Medical History: Deep Vein Thrombosis (DVT) Medications and Allergies Home Medications Medication Instructions Recorded Confirmed Type Ascorbic Acid [Vitamin C] 500 mg PO HS 10/01/17 02/24/25 History Ezetimibe [Zetia] 10 mg PO DAILY 10/01/17 02/24/25 History Gabapentin 600 mg PO TID 10/01/17 02/24/25 History Multivitamins, Thera [Multivitamin 1 tab PO DAILY 10/01/17 02/24/25 History (formulary)] [place]-3 Fatty Acids/Fish Oil [Fish 1 cap PO HS 10/01/17 02/24/25 History Oil 1,000 mg Softgel] Prostate Herbal Combo 1 tab PO BID 10/01/17 02/24/25 History Testosterone [Androgel 1.62% Gel 1 applic TOPICAL DAILY 10/01/17 02/24/25 History Pump] Zolpidem [Ambien] 5 mg PO HS PRN 10/01/17 02/24/25 History gemfibroziL [Lopid] 600 mg PO BID 10/01/17 02/24/25 History Empagliflozin [Jardiance] 25 mg PO DAILY 09/10/19 02/24/25 History Omeprazole [PriLOSEC] 20 mg PO BID 09/10/19 02/24/25 History Cinnamon Bark [Cinnamon] 500 mg PO BID 02/24/25 02/24/25 History EPINEPHrine (Auto Inject) [Epipen] 0.3 mg IM ONCE PRN 02/24/25 02/24/25 History Ergocalciferol [Vitamin D2 (1250 1,250 mcg PO TH 02/24/25 02/24/25 History Mcg = 60340 Iu)] HYDROcodone/APAP 5-325MG [[place] 1 tab PO BID PRN 02/24/25 02/24/25 History 5-325] Insulin Glargine,Hum.rec.anlog 30 units SQ DAILY 02/24/25 02/24/25 History [Lantus Solostar Pen] Ondansetron [Zofran] 4 mg PO BID PRN 02/24/25 02/24/25 History Tirzepatide [Mounjaro] 12.5 mg SQ TU 02/24/25 02/24/25 History Allergies Allergy/AdvReac Type Severity Reaction Status Date / Time atomoxetine [From Strattera] Allergy Unknown Verified 02/24/25 16:08 fenofibrate [From Tricor] Allergy Anaphylaxis Verified 02/24/25 16:08 glipizide Allergy Unknown Verified 02/24/25 16:08 latex Allergy reddened Verified 02/24/25 16:08 skin mold Allergy swollen Verified 02/24/25 16:08 eyes and sneezing Penicillins Allergy Rash/Hives Verified 02/24/25 16:08 pravastatin Allergy Unknown Verified 02/24/25 16:08 rosuvastatin [From Crestor] Allergy Rash/Hives Verified 02/24/25 16:08 Sulfa (Sulfonamide Allergy Anaphylaxis Verified 02/24/25 16:08 Antibiotics) dapagliflozin [From Farxiga] AdvReac Unknown Verified 02/24/25 16:08 Zgpsstz-RSY-YkX Reductase AdvReac stomach Verified 02/24/25 16:08 Inhibitor cramping, [Uvsubkv-Sgu-Xdk Reductase agitation Inhibitor] Physical Exam Vitals: Vital Signs Temp Pulse Pulse Resp BP BP Pulse Ox 02/25/25 04:00 97.7 F 77 19 111/65 95 02/25/25 00:15 18 94 L 02/25/25 00:00 97.4 F L 78 18 107/63 95 02/24/25 21:56 87 20 02/24/25 21:04 99.2 F 85 21 105/55 93 L 02/24/25 20:00 105 H 20 107/59 92 L 02/24/25 19:45 101 H 24 133/77 94 L 02/24/25 19:26 98 16 132/66 94 L 02/24/25 18:36 103.1 F H 100 16 120/59 02/24/25 18:21 83 20 128/68 96 02/24/25 17:05 98.8 F 85 20 120/67 96 02/24/25 14:47 100.1 F H 86 20 99/60 94 L 02/24/25 13:42 103.7 F H 101 H 24 81/50 92 L Intake and Output 02/24/25 02/25/25 02/25/25 22:59 06:59 14:59 Intake Total 950 Output Total 1 500 Balance 949 -500 Intake: IV 950 Output: Urine 500 Estimated Blood Loss 1 Other: Voiding Method Indwelling Catheter Indwelling Catheter Weight 95.254 kg Results CBC & Chem 7: 02/25/25 06:32 02/25/25 06:32 Labs: Abnormal Lab Results - Last 24 Hours (Table) 02/24/25 02/24/25 02/24/25 Range/Units 14:14 14:14 14:14 WBC 14.41 H (4.50-10.00) 10*3/uL RBC 5.63 H (4.40-5.60) 10*6/uL Plt Count (140-440) 10*3/uL Immature Gran # 0.05 H (0.00-0.04) 10*3/uL Neutrophils # 13.79 H (1.80-7.70) 10*3/uL Lymphocytes # 0.13 L (0.90-5.00) 10*3/uL Monocytes # (0.20-1.00) 10*3/uL Eosinophils # 0.00 L (0.04-0.35) 10*3/uL PT (10.0-12.5) sec INR (<1.2) Chloride (98-107) mmol/L Carbon Dioxide 16 L (22-30) mmol/L BUN 34 H (9-20) mg/dL Creatinine 2.21 H (0.66-1.25) mg/dL Glucose 248 H (74-99) mg/dL POC Glucose (mg/dL) (70-110) mg/dL Plasma Lactic Acid Shukri 3.2 H* (0.7-2.0) mmol/L Total Bilirubin 1.7 H (0.2-1.3) mg/dL Ur Specific [place] (1.001-1.035) Urine Glucose (UA) (Negative) Urine Blood (Negative) Ur Leukocyte Esterase (Negative) Urine RBC (0-5) /hpf Urine WBC (0-5) /hpf Calcium Oxalate Crystal (None) /hpf Urine Bacteria (None) /hpf Urine Yeast (Budding) (None) /hpf 02/24/25 02/24/25 02/24/25 Range/Units 15:43 17:15 18:39 WBC (4.50-10.00) 10*3/uL RBC (4.40-5.60) 10*6/uL Plt Count (140-440) 10*3/uL Immature Gran # (0.00-0.04) 10*3/uL Neutrophils # (1.80-7.70) 10*3/uL Lymphocytes # (0.90-5.00) 10*3/uL Monocytes # (0.20-1.00) 10*3/uL Eosinophils # (0.04-0.35) 10*3/uL PT (10.0-12.5) sec INR (<1.2) Chloride (98-107) mmol/L Carbon Dioxide (22-30) mmol/L BUN (9-20) mg/dL Creatinine (0.66-1.25) mg/dL Glucose (74-99) mg/dL POC Glucose (mg/dL) 220 H (70-110) mg/dL Plasma Lactic Acid Shukri 4.8 H* (0.7-2.0) mmol/L Total Bilirubin (0.2-1.3) mg/dL Ur Specific [place] 1.037 H (1.001-1.035) Urine Glucose (UA) 4+ H (Negative) Urine Blood Moderate H (Negative) Ur Leukocyte Esterase Large H (Negative) Urine RBC 40 H (0-5) /hpf Urine WBC >182 H (0-5) /hpf Calcium Oxalate Crystal Rare H (None) /hpf Urine Bacteria Many H (None) /hpf Urine Yeast (Budding) Moderate H (None) /hpf 02/24/25 02/25/25 02/25/25 Range/Units 20:45 06:32 06:32 WBC (4.50-10.00) 10*3/uL RBC (4.40-5.60) 10*6/uL Plt Count 126 L (140-440) 10*3/uL Immature Gran # (0.00-0.04) 10*3/uL Neutrophils # 9.58 H (1.80-7.70) 10*3/uL Lymphocytes # 0.17 L (0.90-5.00) 10*3/uL Monocytes # 0.19 L (0.20-1.00) 10*3/uL Eosinophils # 0.00 L (0.04-0.35) 10*3/uL PT 12.9 H (10.0-12.5) sec INR 1.2 H (<1.2) Chloride (98-107) mmol/L Carbon Dioxide (22-30) mmol/L BUN (9-20) mg/dL Creatinine (0.66-1.25) mg/dL Glucose (74-99) mg/dL POC Glucose (mg/dL) (70-110) mg/dL Plasma Lactic Acid Shukri 3.0 H* (0.7-2.0) mmol/L Total Bilirubin (0.2-1.3) mg/dL Ur Specific [place] (1.001-1.035) Urine Glucose (UA) (Negative) Urine Blood (Negative) Ur Leukocyte Esterase (Negative) Urine RBC (0-5) /hpf Urine WBC (0-5) /hpf Calcium Oxalate Crystal (None) /hpf Urine Bacteria (None) /hpf Urine Yeast (Budding) (None) /hpf 02/25/25 02/25/25 Range/Units 06:32 06:37 WBC (4.50-10.00) 10*3/uL RBC (4.40-5.60) 10*6/uL Plt Count (140-440) 10*3/uL Immature Gran # (0.00-0.04) 10*3/uL Neutrophils # (1.80-7.70) 10*3/uL Lymphocytes # (0.90-5.00) 10*3/uL Monocytes # (0.20-1.00) 10*3/uL Eosinophils # (0.04-0.35) 10*3/uL PT (10.0-12.5) sec INR (<1.2) Chloride 108 H (98-107) mmol/L Carbon Dioxide (22-30) mmol/L BUN 36 H (9-20) mg/dL Creatinine 1.60 H (0.66-1.25) mg/dL Glucose 196 H (74-99) mg/dL POC Glucose (mg/dL) 194 H (70-110) mg/dL Plasma Lactic Acid Shukri (0.7-2.0) mmol/L Total Bilirubin (0.2-1.3) mg/dL Ur Specific [place] (1.001-1.035) Urine Glucose (UA) (Negative) Urine Blood (Negative) Ur Leukocyte Esterase (Negative) Urine RBC (0-5) /hpf Urine WBC (0-5) /hpf Calcium Oxalate Crystal (None) /hpf Urine Bacteria (None) /hpf Urine Yeast (Budding) (None) /hpf Thrombosis Risk Factor Assmnt - Choose All That Apply Any of the Below Risk Factors Present?: Yes Each Factor Represents 1 point: Abnormal pulmonary function (COPD), History of prior major surgery (<1month), Obesity (BMI >25), Sepsis (< 1month) Other Risk Factors: Yes Each Risk Factor Represents 3 Points: Age 75 years or older Other congenital or acquired thrombophilia - If yes, enter type in comment: No Thrombosis Risk Factor Assessment Total Risk Factor Score: 7 Thrombosis Risk Factor Assessment Level: High Risk
--- NOTE | 2025-02-25 16:39 | P.PN ---
Subjective Progress Note Date: 02/25/25 Postop day #1 status post left-sided stent insertion for septic stone. Mental status significantly improved this morning, denies any flank pain. Urine is clear in the catheter. He is afebrile this morning Objective - Vital Signs Vital signs: Vital Signs Temp 98.3 F 02/25/25 15:01 Pulse 80 02/25/25 15:01 Resp 16 02/25/25 15:01 BP 110/63 02/25/25 15:01 Pulse Ox 94 L 02/25/25 15:01 FiO2 Intake & Output 02/24/25 02/25/25 02/25/25 18:59 06:59 18:59 Intake Total 800 150 Output Total 501 850 Balance 800 -351 -850 Weight 95.254 kg 95.254 kg Intake: IV 800 150 Output: Urine 500 850 Estimated Blood Loss 1 Other: Voiding Method Indwelling Catheter Indwelling Catheter - Constitutional General appearance: Present: no acute distress - Gastrointestinal General gastrointestinal: Present: distended, soft. Absent: tenderness - Labs CBC & Chem 7: 02/25/25 06:32 02/25/25 06:32 Labs: Abnormal Lab Results - Last 24 Hours (Table) 02/24/25 02/24/25 02/24/25 Range/Units 17:15 18:39 20:45 Plt Count (140-440) 10*3/uL Neutrophils # (1.80-7.70) 10*3/uL Lymphocytes # (0.90-5.00) 10*3/uL Monocytes # (0.20-1.00) 10*3/uL Eosinophils # (0.04-0.35) 10*3/uL PT (10.0-12.5) sec INR (<1.2) Chloride (98-107) mmol/L BUN (9-20) mg/dL Creatinine (0.66-1.25) mg/dL Glucose (74-99) mg/dL POC Glucose (mg/dL) 220 H (70-110) mg/dL Plasma Lactic Acid Shukri 4.8 H* 3.0 H* (0.7-2.0) mmol/L 02/25/25 02/25/25 02/25/25 Range/Units 06:32 06:32 06:32 Plt Count 126 L (140-440) 10*3/uL Neutrophils # 9.58 H (1.80-7.70) 10*3/uL Lymphocytes # 0.17 L (0.90-5.00) 10*3/uL Monocytes # 0.19 L (0.20-1.00) 10*3/uL Eosinophils # 0.00 L (0.04-0.35) 10*3/uL PT 12.9 H (10.0-12.5) sec INR 1.2 H (<1.2) Chloride 108 H (98-107) mmol/L BUN 36 H (9-20) mg/dL Creatinine 1.60 H (0.66-1.25) mg/dL Glucose 196 H (74-99) mg/dL POC Glucose (mg/dL) (70-110) mg/dL Plasma Lactic Acid Shukri (0.7-2.0) mmol/L 02/25/25 02/25/25 Range/Units 06:37 11:40 Plt Count (140-440) 10*3/uL Neutrophils # (1.80-7.70) 10*3/uL Lymphocytes # (0.90-5.00) 10*3/uL Monocytes # (0.20-1.00) 10*3/uL Eosinophils # (0.04-0.35) 10*3/uL PT (10.0-12.5) sec INR (<1.2) Chloride (98-107) mmol/L BUN (9-20) mg/dL Creatinine (0.66-1.25) mg/dL Glucose (74-99) mg/dL POC Glucose (mg/dL) 194 H 218 H (70-110) mg/dL Plasma Lactic Acid Shukri (0.7-2.0) mmol/L Assessment and Plan Assessment: 80-year-old male with history of septic stone. Status post left-sided stent insertion on February 24. Patient hemodynamics and mental status improved this morning. -Follow-up on urine and blood culture, recommend keep in the hospital until cultures finalized - Keep Padilla catheter in place - Will eventually require outpatient left-sided ureteroscopy and holmium laser once sepsis resolves
[2025-02-25 16:41] LABS: Glucose,Whole Blood 179 mg/dL (70-110)
[2025-02-25 20:30] LABS: Glucose,Whole Blood 167 mg/dL (70-110)
[2025-02-25] MEDS: INSULIN GLARGINE (LANTUS) 100 UNIT/ML SYR SQ SCH (20:47)
[2025-02-25] MEDS: ZOLPIDEM 5 MG TAB PO PRN (22:57)
[2025-02-26 06:01] LABS: Glucose,Whole Blood 120 mg/dL (70-110)
[2025-02-26] MEDS: NON FORMULARY DRUG (Gemfibrozil 600 MG Tab) PO SCH (06:12)
[2025-02-26] MEDS: PANTOPRAZOLE 40 MG TABLET PO SCH (06:12)
[2025-02-26 07:06] LABS: Basophils # (A) 0.03 10*3/uL (0.00-0.10); Basophils % (A) 0.6 %; Eosinophils # (A) 0.03 10*3/uL (0.04-0.35); Eosinophils % (A) 0.6 %; HCT 42.4 % (39.6-50.0); HGB 14.2 g/dL (13.0-17.0); Immature Platelet Fraction 2.8 % (1.1-6.1); Lymphocytes # (A) 0.59 10*3/uL (0.90-5.00); Lymphocytes % (A) 11.4 %; MCH 28.2 pg (27.0-32.0); MCHC 33.5 g/dL (32.0-37.0); MCV 84.1 fL (80.0-97.0); Monocytes # (A) 0.33 10*3/uL (0.20-1.00); Monocytes % (A) 6.4 %; Neutrophils # (A) 4.17 10*3/uL (1.80-7.70); Neutrophils % (A) 80.4 %; Platelet Count 113 10*3/uL (140-440); RBC 5.04 10*6/uL (4.40-5.60); RDW 14.0 % (11.5-14.5); WBC 5.18 10*3/uL (4.50-10.00)
[2025-02-26 07:25] LABS: ALT 50 U/L (4-49); AST 100 U/L (17-59); African American GFR (CKD) 66 (>60 ml/min/1.73 sqM); Albumin 3.0 g/dL (3.5-5.0); Alkaline Phosphatase 57 U/L (38-126); Anion Gap 8 mmol/L; Blood Urea Nitrogen 39 mg/dL (9-20); Calcium 8.4 mg/dL (8.4-10.2); Carbon Dioxide 24 mmol/L (22-30); Chloride 103 mmol/L (98-107); Glucose 117 mg/dL (74-99); Non-African American GFR(CKD) 57 (>60 ml/min/1.73 sqM); Potassium 4.0 mmol/L (3.5-5.1); Sodium 135 mmol/L (137-145); Total Protein 5.4 g/dL (6.3-8.2)
--- NOTE | 2025-02-26 07:47 | P.CONS ---
History of Present Illness - Reason for Consult Consult date: 02/25/25 Sepsis Requesting physician: Tonny Vanessa - Chief Complaint Mental status changes weakness x 1 day on admission - History of Present Illness Patient is a 80-year-old male with a past medical history significant for colon and testicular cancer, COPD, Diabetes Mellitus, Eye Disorder, GERD/Reflux, Hyperlipidemia, Hypertension, Prostate Disorder, Sleep Apnea/CPAP/BIPAP, patient has been brought into the hospital for evaluation of mental status changes that apparently started the day before presentation to the hospital patient was also complaining of left flank pain for which EMS was called in on arrival the EMS patient also noticed to be hypoxic with O2 sats in the 80s noted to have significant elevated temperature for the patient has been brought into the hospital on arrival to the ER patient did have a fever of 103.7 F patient was tachycardic but not hypotensive mildly hypoxic currently on 4 L nasal cannula oxygen patient did have a white count of 14.41 BUN and creatinine has been elevated lactic acid was elevated urine was positive patient did have a abdominal pelvis CT with mild left hydroureteronephrosis with 7 mm calculus within the left upper ureter patient was taken to the OR and the patient status post cystoscopy and left ureteral stent placement patient has been empirically started on Rocephin infectious disease was consulted for further management of antibiotic therapy Review of Systems Positive point and negatives has been mentioned in the HPI, complete review of systems was performed and all other systems are negative Past Medical History Past Medical History: Cancer, COPD, Diabetes Mellitus, Eye Disorder, GERD/Reflux, Hyperlipidemia, Hypertension, Prostate Disorder, Sleep Apnea/CPAP/BIPAP Additional Past Medical History / Comment(s): hx colon and testicular cancer, neuropathy, uses cpap, MIGRAINE HEADACHE, KIDNEY STONES History of Any Multi-Drug Resistant Organisms: None Reported Past Surgical History: Bowel Resection, Joint Replacement Additional Past Surgical History / Comment(s): lt testicle removed, bilateral cataracts removed, total right knee Past Anesthesia/Blood Transfusion Reactions: No Reported Reaction Past Psychological History: Depression Additional Psychological History / Comment(s): PAST HISTORY Smoking Status: Former smoker Past Alcohol Use History: None Reported Additional Past Alcohol Use History / Comment(s): smoked age [age] SMOKED 1ppd Past Drug Use History: None Reported - Past Family History Mother Family Medical History: Deep Vein Thrombosis (DVT) Medications and Allergies Home Medications Medication Instructions Recorded Confirmed Type Ascorbic Acid [Vitamin C] 500 mg PO HS 10/01/17 02/24/25 History Ezetimibe [Zetia] 10 mg PO DAILY 10/01/17 02/24/25 History Gabapentin 600 mg PO TID 10/01/17 02/24/25 History Multivitamins, Thera [Multivitamin 1 tab PO DAILY 10/01/17 02/24/25 History (formulary)] Kerens-3 Fatty Acids/Fish Oil [Fish 1 cap PO HS 10/01/17 02/24/25 History Oil 1,000 mg Softgel] Prostate Herbal Combo 1 tab PO BID 10/01/17 02/24/25 History Testosterone [Androgel 1.62% Gel 1 applic TOPICAL DAILY 10/01/17 02/24/25 History Pump] Zolpidem [Ambien] 5 mg PO HS PRN 10/01/17 02/24/25 History gemfibroziL [Lopid] 600 mg PO BID 10/01/17 02/24/25 History Empagliflozin [Jardiance] 25 mg PO DAILY 09/10/19 02/24/25 History Omeprazole [PriLOSEC] 20 mg PO BID 09/10/19 02/24/25 History Cinnamon Bark [Cinnamon] 500 mg PO BID 02/24/25 02/24/25 History EPINEPHrine (Auto Inject) [Epipen] 0.3 mg IM ONCE PRN 02/24/25 02/24/25 History Ergocalciferol [Vitamin D2 (1250 1,250 mcg PO TH 02/24/25 02/24/25 History Mcg = 41901 Iu)] HYDROcodone/APAP 5-325MG [[place] 1 tab PO BID PRN 02/24/25 02/24/25 History 5-325] Insulin Glargine,Hum.rec.anlog 30 units SQ DAILY 02/24/25 02/24/25 History [Lantus Solostar Pen] Ondansetron [Zofran] 4 mg PO BID PRN 02/24/25 02/24/25 History Tirzepatide [Mounjaro] 12.5 mg SQ TU 02/24/25 02/24/25 History Allergies Allergy/AdvReac Type Severity Reaction Status Date / Time atomoxetine [From Strattera] Allergy Unknown Verified 02/24/25 16:08 fenofibrate [From Tricor] Allergy Anaphylaxis Verified 02/24/25 16:08 glipizide Allergy Unknown Verified 02/24/25 16:08 latex Allergy reddened Verified 02/24/25 16:08 skin mold Allergy swollen Verified 02/24/25 16:08 eyes and sneezing Penicillins Allergy Rash/Hives Verified 02/24/25 16:08 pravastatin Allergy Unknown Verified 02/24/25 16:08 rosuvastatin [From Crestor] Allergy Rash/Hives Verified 02/24/25 16:08 Sulfa (Sulfonamide Allergy Anaphylaxis Verified 02/24/25 16:08 Antibiotics) dapagliflozin [From Farxiga] AdvReac Unknown Verified 02/24/25 16:08 Ycdmtjx-JPF-PfI Reductase AdvReac stomach Verified 02/24/25 16:08 Inhibitor cramping, [Xhxoaon-Wdy-Tqa Reductase agitation Inhibitor] Physical Exam Vitals: Vital Signs Temp Pulse Pulse Resp BP BP Pulse Ox 02/25/25 11:05 98.1 F 70 18 123/65 93 L 02/25/25 08:21 98.1 F 77 20 156/67 95 02/25/25 04:00 97.7 F 77 19 111/65 95 02/25/25 00:15 18 94 L 02/25/25 00:00 97.4 F L 78 18 107/63 95 02/24/25 21:56 87 20 02/24/25 21:04 99.2 F 85 21 105/55 93 L 02/24/25 20:00 105 H 20 107/59 92 L 02/24/25 19:45 101 H 24 133/77 94 L 02/24/25 19:26 98 16 132/66 94 L 02/24/25 18:36 103.1 F H 100 16 120/59 02/24/25 18:21 83 20 128/68 96 02/24/25 17:05 98.8 F 85 20 120/67 96 02/24/25 14:47 100.1 F H 86 20 99/60 94 L 02/24/25 13:42 103.7 F H 101 H 24 81/50 92 L Intake and Output 02/24/25 02/25/25 02/25/25 22:59 06:59 14:59 Intake Total 950 Output Total 1 500 Balance 949 -500 Intake: IV 950 Output: Urine 500 Estimated Blood Loss 1 Other: Voiding Method Indwelling Catheter Indwelling Catheter Indwelling Catheter Weight 95.254 kg GENERAL DESCRIPTION: Elderly male lying in bed, no distress. No tachypnea or accessory muscle of respiration use. HEENT: Shows Pallor , no scleral icterus. Oral mucous membrane is dry. NECK: Trachea central, no thyromegaly. LUNGS: Unlabored breathing. Clear to auscultation anteriorly. No wheeze or crackle. HEART: S1, S2, regular rate and rhythm. No loud murmur ABDOMEN: Soft, no tenderness , guarding or rigidity, no organomegaly EXTREMITIES: No edema of feet. SKIN: No rash, no masses palpable. NEUROLOGICAL: The patient is awake, alert, oriented x3, mood and affect normal. Results CBC & Chem 7: 02/26/25 06:36 02/26/25 06:36 Labs: Abnormal Lab Results - Last 24 Hours (Table) 02/24/25 02/24/25 02/24/25 Range/Units 14:14 14:14 14:14 WBC 14.41 H (4.50-10.00) 10*3/uL RBC 5.63 H (4.40-5.60) 10*6/uL Plt Count (140-440) 10*3/uL Immature Gran # 0.05 H (0.00-0.04) 10*3/uL Neutrophils # 13.79 H (1.80-7.70) 10*3/uL Lymphocytes # 0.13 L (0.90-5.00) 10*3/uL Monocytes # (0.20-1.00) 10*3/uL Eosinophils # 0.00 L (0.04-0.35) 10*3/uL PT (10.0-12.5) sec INR (<1.2) Chloride (98-107) mmol/L Carbon Dioxide 16 L (22-30) mmol/L BUN 34 H (9-20) mg/dL Creatinine 2.21 H (0.66-1.25) mg/dL Glucose 248 H (74-99) mg/dL POC Glucose (mg/dL) (70-110) mg/dL Plasma Lactic Acid Shukri 3.2 H* (0.7-2.0) mmol/L Total Bilirubin 1.7 H (0.2-1.3) mg/dL Ur Specific [place] (1.001-1.035) Urine Glucose (UA) (Negative) Urine Blood (Negative) Ur Leukocyte Esterase (Negative) Urine RBC (0-5) /hpf Urine WBC (0-5) /hpf Calcium Oxalate Crystal (None) /hpf Urine Bacteria (None) /hpf Urine Yeast (Budding) (None) /hpf 02/24/25 02/24/25 02/24/25 Range/Units 15:43 17:15 18:39 WBC (4.50-10.00) 10*3/uL RBC (4.40-5.60) 10*6/uL Plt Count (140-440) 10*3/uL Immature Gran # (0.00-0.04) 10*3/uL Neutrophils # (1.80-7.70) 10*3/uL Lymphocytes # (0.90-5.00) 10*3/uL Monocytes # (0.20-1.00) 10*3/uL Eosinophils # (0.04-0.35) 10*3/uL PT (10.0-12.5) sec INR (<1.2) Chloride (98-107) mmol/L Carbon Dioxide (22-30) mmol/L BUN (9-20) mg/dL Creatinine (0.66-1.25) mg/dL Glucose (74-99) mg/dL POC Glucose (mg/dL) 220 H (70-110) mg/dL Plasma Lactic Acid Shukri 4.8 H* (0.7-2.0) mmol/L Total Bilirubin (0.2-1.3) mg/dL Ur Specific [place] 1.037 H (1.001-1.035) Urine Glucose (UA) 4+ H (Negative) Urine Blood Moderate H (Negative) Ur Leukocyte Esterase Large H (Negative) Urine RBC 40 H (0-5) /hpf Urine WBC >182 H (0-5) /hpf Calcium Oxalate Crystal Rare H (None) /hpf Urine Bacteria Many H (None) /hpf Urine Yeast (Budding) Moderate H (None) /hpf 02/24/25 02/25/25 02/25/25 Range/Units 20:45 06:32 06:32 WBC (4.50-10.00) 10*3/uL RBC (4.40-5.60) 10*6/uL Plt Count 126 L (140-440) 10*3/uL Immature Gran # (0.00-0.04) 10*3/uL Neutrophils # 9.58 H (1.80-7.70) 10*3/uL Lymphocytes # 0.17 L (0.90-5.00) 10*3/uL Monocytes # 0.19 L (0.20-1.00) 10*3/uL Eosinophils # 0.00 L (0.04-0.35) 10*3/uL PT 12.9 H (10.0-12.5) sec INR 1.2 H (<1.2) Chloride (98-107) mmol/L Carbon Dioxide (22-30) mmol/L BUN (9-20) mg/dL Creatinine (0.66-1.25) mg/dL Glucose (74-99) mg/dL POC Glucose (mg/dL) (70-110) mg/dL Plasma Lactic Acid Shukri 3.0 H* (0.7-2.0) mmol/L Total Bilirubin (0.2-1.3) mg/dL Ur Specific [place] (1.001-1.035) Urine Glucose (UA) (Negative) Urine Blood (Negative) Ur Leukocyte Esterase (Negative) Urine RBC (0-5) /hpf Urine WBC (0-5) /hpf Calcium Oxalate Crystal (None) /hpf Urine Bacteria (None) /hpf Urine Yeast (Budding) (None) /hpf 02/25/25 02/25/25 02/25/25 Range/Units 06:32 06:37 11:40 WBC (4.50-10.00) 10*3/uL RBC (4.40-5.60) 10*6/uL Plt Count (140-440) 10*3/uL Immature Gran # (0.00-0.04) 10*3/uL Neutrophils # (1.80-7.70) 10*3/uL Lymphocytes # (0.90-5.00) 10*3/uL Monocytes # (0.20-1.00) 10*3/uL Eosinophils # (0.04-0.35) 10*3/uL PT (10.0-12.5) sec INR (<1.2) Chloride 108 H (98-107) mmol/L Carbon Dioxide (22-30) mmol/L BUN 36 H (9-20) mg/dL Creatinine 1.60 H (0.66-1.25) mg/dL Glucose 196 H (74-99) mg/dL POC Glucose (mg/dL) 194 H 218 H (70-110) mg/dL Plasma Lactic Acid Shukri (0.7-2.0) mmol/L Total Bilirubin (0.2-1.3) mg/dL Ur Specific [place] (1.001-1.035) Urine Glucose (UA) (Negative) Urine Blood (Negative) Ur Leukocyte Esterase (Negative) Urine RBC (0-5) /hpf Urine WBC (0-5) /hpf Calcium Oxalate Crystal (None) /hpf Urine Bacteria (None) /hpf Urine Yeast (Budding) (None) /hpf Assessment and Plan (1) Allergy to multiple antibiotics Current Visit: Yes Status: Acute Code(s): Z88.1 - ALLERGY STATUS TO OTHER ANTIBIOTIC AGENTS SNOMED Code(s): 673794914 (2) Sepsis Current Visit: Yes Status: Acute Code(s): A41.9 - SEPSIS, UNSPECIFIED ORGANISM SNOMED Code(s): 01210891 (3) UTI (urinary tract infection) Current Visit: Yes Status: Acute Code(s): N39.0 - URINARY TRACT INFECTION, SITE NOT SPECIFIED SNOMED Code(s): 49623085 Plan: 1patient presented hospital with sepsis in this patient did have fever tachycardia elevated white count elevated lactic acid mildly criteria for SIRS/sepsis source is urinary in this patient did have a complicated UTI with left-sided hydroureteronephrosis requiring cystoscopy and left ureteral stent placement likely related to enteric gram-negative pathogen. 2patient with multiple antibiotic ALLERGIES that would limit the number of antibiotic safe to use 3patient empirically treated with Rocephin 2 g daily while waiting for the culture to finalize. The at the bedside multiple question concern answered. We will follow on clinical condition and cultures to further adjust medication if needed Thank you for this consultation we will follow the patient along with you Dictation was produced using [employer] dictation software. please excuse any grammatical, word or spelling errors. Time with Patient: Greater than 30
[2025-02-26] MEDS: EZETIMIBE 10 MG TAB PO SCH (08:55)
[2025-02-26 11:32] LABS: Glucose,Whole Blood 139 mg/dL (70-110)
--- NOTE | 2025-02-26 12:22 | P.PN ---
Subjective Had a fever of 100.7 this morning. Urine culture showed contaminant. Still complains of weakness, denies any dysuria, flank pain or gross hematuria. Padilla catheter in place draining clear yellow urine Objective - Vital Signs Vital signs: Vital Signs Temp 100.7 F H 02/26/25 08:00 Pulse 89 02/26/25 08:00 Resp 18 02/26/25 08:00 BP 153/73 02/26/25 08:00 Pulse Ox 93 L 02/26/25 08:00 FiO2 Intake & Output 02/25/25 02/26/25 02/26/25 18:59 06:59 18:59 Intake Total 540 Output Total 1400 400 Balance -1400 540 -400 Weight 98 kg 98 kg Intake: Oral 540 Output: Urine 1400 400 Other: Voiding Method Indwelling Catheter Indwelling Catheter Indwelling Catheter - Constitutional General appearance: Present: no acute distress - Gastrointestinal General gastrointestinal: Present: soft. Absent: distended, tenderness - Labs CBC & Chem 7: 02/26/25 06:36 02/26/25 06:36 Labs: Abnormal Lab Results - Last 24 Hours (Table) 02/25/25 02/25/25 02/26/25 Range/Units 16:37 20:29 06:00 Plt Count (140-440) 10*3/uL Lymphocytes # (0.90-5.00) 10*3/uL Eosinophils # (0.04-0.35) 10*3/uL Sodium (137-145) mmol/L BUN (9-20) mg/dL Glucose (74-99) mg/dL POC Glucose (mg/dL) 179 H 167 H 120 H (70-110) mg/dL Hemoglobin A1c (<=6.0) % AST (17-59) U/L ALT (4-49) U/L Total Protein (6.3-8.2) g/dL Albumin (3.5-5.0) g/dL 02/26/25 02/26/25 02/26/25 Range/Units 06:36 06:36 06:36 Plt Count 113 L (140-440) 10*3/uL Lymphocytes # 0.59 L (0.90-5.00) 10*3/uL Eosinophils # 0.03 L (0.04-0.35) 10*3/uL Sodium 135 L (137-145) mmol/L BUN 39 H (9-20) mg/dL Glucose 117 H (74-99) mg/dL POC Glucose (mg/dL) (70-110) mg/dL Hemoglobin A1c 7.2 H (<=6.0) % AST 100 H (17-59) U/L ALT 50 H (4-49) U/L Total Protein 5.4 L (6.3-8.2) g/dL Albumin 3.0 L (3.5-5.0) g/dL 02/26/25 Range/Units 11:31 Plt Count (140-440) 10*3/uL Lymphocytes # (0.90-5.00) 10*3/uL Eosinophils # (0.04-0.35) 10*3/uL Sodium (137-145) mmol/L BUN (9-20) mg/dL Glucose (74-99) mg/dL POC Glucose (mg/dL) 139 H (70-110) mg/dL Hemoglobin A1c (<=6.0) % AST (17-59) U/L ALT (4-49) U/L Total Protein (6.3-8.2) g/dL Albumin (3.5-5.0) g/dL Microbiology - Last 24 Hours (Table) 02/24/25 15:43 Urine Culture - Final Urine,Voided 02/24/25 14:14 Blood Culture - Preliminary Blood Assessment and Plan Assessment: 80-year-old male with history of septic stone. Status post left-sided stent insertion on February 24. He is having low-grade fever this morning. Urine culture is a contaminant - Keep Padilla catheter in place, this can be removed once patient is ambulatory and afebrile for 24 hours - Will eventually require outpatient left-sided ureteroscopy and holmium laser once sepsis resolves
--- NOTE | 2025-02-26 12:40 | P.PN ---
Subjective Progress Note Date: 02/26/25 80-year-old gentleman with past medical history significant for insulin- dependent diabetes mellitus, bladder cancer presented the ER because of altered mental status. Patient was all right yesterday when he was complaining of some left flank pain, at that time patient went to stand-alone ER in [place], they did a CT scan showing left ureteral stone, patient was discharged on medications and was told to follow-up outpatient with his urologist. On coming back home patient continues to had flank pain, patient was getting more confused. Patient started spiking fevers and was complaining of chills. Because of the symptoms, EMS was called and the right, patient was found to be short of breath. Patient brought to the ER at [place] Initial lab work done in the ER showed WBC 14.41, hemoglobin 3.6, platelet count 140, sodium 130, potassium 4.4, BUN 34, creatinine 2.21, lactate 3.2, bilirubin 1.7, AST 37, ALT 28, proBNP 2880 UA done showed large amount of leukocyte Estrace,Urine WBC 182, Chest x-ray done in the ER showed diffuse interstitial densities, correlate for pulmonary congestion versus bronchitis versus atypical pneumonia CT head done showed no acute intracranial process, mild elevation of the ventricular system which may be related to level of subdural prophy with normal pressure hydrocephalus not excluded CT abdominal pelvis done showed mild left hydroureteronephrosis with a 7 mm calculus in the upper left ureter, nonobstructing bilateral renal calculi. Contrast filled urinary bladder without filling defect Patient admitted to internal medicine service 02/26. Patient seen and examined. Patient low-grade fever this morning. States he feels better. REVIEW OF SYSTEMS: CONSTITUTIONAL: As mentioned above CARDIOVASCULAR: No chest pain, no palpitations, no syncope. PULMONARY: No shortness of breath, no cough, GASTROINTESTINAL: No diarrhea, no nausea, no vomiting, no abdominal pain. NEUROLOGICAL: No headaches, no weakness, PHYSICAL EXAMINATION: GENERAL: The patient is alert and oriented x3, not in any acute distress. Well developed, well nourished. HEENT: Pupils are round and equally reacting to light. EOMI. No scleral icterus. No conjunctival pallor. Normocephalic, atraumatic. No pharyngeal erythema. No thyromegaly. CARDIOVASCULAR: S1 and S2 present. No murmurs, rubs, or gallops. PULMONARY: Chest is clear to auscultation, no wheezing or crackles. ABDOMEN: Soft, nontender, nondistended, normoactive bowel sounds. No palpable organomegaly. MUSCULOSKELETAL: No joint swelling or deformity. EXTREMITIES: No cyanosis, clubbing, or pedal edema. NEUROLOGICAL: Gross neurological examination did not reveal any focal deficits. SKIN: No rashes. Assessment and plan Sepsis Acute infectious encephalopathy Lactic acidosis Acute kidney injury Left hydroureteronephrosis Left ureteric stone Acute hypoxic respiratory failure History of bladder cancer History of diabetes mellitus Monitor vital signs Monitor CBC Monitor CMP Continue telemetry monitoring Follow-up on blood cultures Follow-up on urine culture Continue IV Rocephin Urology were consulted, patient underwent cystoscopy with left stent insertion. ID following Labs and medication were reviewed.. Continue same treatment. Continue with symptomatic treatment. Resume home medication. Monitor labs and vitals. DVT and GI prophylaxis. Further recommendations as per clinical course of the patient Dictation was produced using [employer] dictation software. please excuse any grammatical, word or spelling errors. Objective - Vital Signs Vital signs: Vital Signs Temp 100.7 F H 02/26/25 08:00 Pulse 89 02/26/25 08:00 Resp 18 02/26/25 08:00 BP 153/73 02/26/25 08:00 Pulse Ox 93 L 02/26/25 08:00 FiO2 Intake & Output 02/25/25 02/26/25 02/26/25 18:59 06:59 18:59 Intake Total 540 Output Total 1400 Balance -1400 540 Weight 98 kg 98 kg Intake: Oral 540 Output: Urine 1400 Other: Voiding Method Indwelling Catheter Indwelling Catheter Indwelling Catheter - Labs CBC & Chem 7: 02/26/25 06:36 02/26/25 06:36 Labs: Abnormal Lab Results - Last 24 Hours (Table) 02/25/25 02/25/25 02/25/25 Range/Units 11:40 16:37 20:29 Plt Count (140-440) 10*3/uL Lymphocytes # (0.90-5.00) 10*3/uL Eosinophils # (0.04-0.35) 10*3/uL Sodium (137-145) mmol/L BUN (9-20) mg/dL Glucose (74-99) mg/dL POC Glucose (mg/dL) 218 H 179 H 167 H (70-110) mg/dL Hemoglobin A1c (<=6.0) % AST (17-59) U/L ALT (4-49) U/L Total Protein (6.3-8.2) g/dL Albumin (3.5-5.0) g/dL 02/26/25 02/26/25 02/26/25 Range/Units 06:00 06:36 06:36 Plt Count 113 L (140-440) 10*3/uL Lymphocytes # 0.59 L (0.90-5.00) 10*3/uL Eosinophils # 0.03 L (0.04-0.35) 10*3/uL Sodium (137-145) mmol/L BUN (9-20) mg/dL Glucose (74-99) mg/dL POC Glucose (mg/dL) 120 H (70-110) mg/dL Hemoglobin A1c 7.2 H (<=6.0) % AST (17-59) U/L ALT (4-49) U/L Total Protein (6.3-8.2) g/dL Albumin (3.5-5.0) g/dL 02/26/25 Range/Units 06:36 Plt Count (140-440) 10*3/uL Lymphocytes # (0.90-5.00) 10*3/uL Eosinophils # (0.04-0.35) 10*3/uL Sodium 135 L (137-145) mmol/L BUN 39 H (9-20) mg/dL Glucose 117 H (74-99) mg/dL POC Glucose (mg/dL) (70-110) mg/dL Hemoglobin A1c (<=6.0) % AST 100 H (17-59) U/L ALT 50 H (4-49) U/L Total Protein 5.4 L (6.3-8.2) g/dL Albumin 3.0 L (3.5-5.0) g/dL Microbiology - Last 24 Hours (Table) 02/24/25 15:43 Urine Culture - Final Urine,Voided 02/24/25 14:14 Blood Culture - Preliminary Blood
[2025-02-26 16:23] LABS: Glucose,Whole Blood 164 mg/dL (70-110)
[2025-02-26 20:04] LABS: Glucose,Whole Blood 127 mg/dL (70-110)
[2025-02-27 06:04] LABS: Glucose,Whole Blood 119 mg/dL (70-110)
[2025-02-27 07:08] LABS: Basophils # (A) 0.04 10*3/uL (0.00-0.10); Basophils % (A) 1.0 %; Eosinophils # (A) 0.10 10*3/uL (0.04-0.35); Eosinophils % (A) 2.4 %; HCT 44.9 % (39.6-50.0); HGB 15.0 g/dL (13.0-17.0); Lymphocytes # (A) 1.21 10*3/uL (0.90-5.00); Lymphocytes % (A) 29.4 %; MCH 28.1 pg (27.0-32.0); MCHC 33.4 g/dL (32.0-37.0); MCV 84.1 fL (80.0-97.0); Monocytes # (A) 0.37 10*3/uL (0.20-1.00); Monocytes % (A) 9.0 %; Neutrophils # (A) 2.38 10*3/uL (1.80-7.70); Neutrophils % (A) 57.7 %; Platelet Count 136 10*3/uL (140-440); RBC 5.34 10*6/uL (4.40-5.60); RDW 14.0 % (11.5-14.5); WBC 4.12 10*3/uL (4.50-10.00)
[2025-02-27 07:26] LABS: ALT 59 U/L (4-49); AST 86 U/L (17-59); African American GFR (CKD) 86 (>60 ml/min/1.73 sqM); Albumin 3.2 g/dL (3.5-5.0); Alkaline Phosphatase 75 U/L (38-126); Anion Gap 7 mmol/L; Blood Urea Nitrogen 27 mg/dL (9-20); Calcium 8.7 mg/dL (8.4-10.2); Carbon Dioxide 26 mmol/L (22-30); Chloride 104 mmol/L (98-107); Glucose 126 mg/dL (74-99); Non-African American GFR(CKD) 74 (>60 ml/min/1.73 sqM); Potassium 4.2 mmol/L (3.5-5.1); Sodium 137 mmol/L (137-145); Total Protein 5.8 g/dL (6.3-8.2)
[2025-02-27 11:39] LABS: Glucose,Whole Blood 200 mg/dL (70-110)
--- NOTE | 2025-02-27 14:44 | P.PN ---
Subjective Progress Note Date: 02/26/25 Principal diagnosis: Reason for follow is complicated UTI/sepsis Patient is a 80-year-old male with a past medical history significant for colon and testicular cancer, COPD, Diabetes Mellitus, Eye Disorder, GERD/Reflux, Hyperlipidemia, Hypertension, Prostate Disorder, Sleep Apnea/CPAP/BIPAP, patient has been brought into the hospital for evaluation of mental status changes patient was noted to be septic secondary to the left-sided hydroureteronephrosis status post cystoscopy and left ureteral stent placement On today's evaluation that is 02/26/2025,the patient did have low-grade fever 100.7 F this morning, patient is on 2 L nasal cannula supplemental oxygen and mentioned breathing comfortably with no chest pain or cough.Patient denies having any nausea or vomiting, no abdominal pain and no diarrhea has been reported. Patient white count is 5.18 creatinine is 1.22 blood and urine cultures have been negative so far Objective - Vital Signs Vital signs: Vital Signs Temp 97.6 F 02/26/25 12:00 Pulse 84 02/26/25 12:00 Resp 16 02/26/25 12:00 BP 145/77 02/26/25 12:00 Pulse Ox 95 02/26/25 12:00 FiO2 Intake & Output 02/25/25 02/26/25 02/26/25 18:59 06:59 18:59 Intake Total 540 240 Output Total 1400 925 Balance -1400 540 -685 Weight 98 kg 98 kg Intake: Oral 540 240 Output: Urine 1400 925 Other: Voiding Method Indwelling Catheter Indwelling Catheter Indwelling Catheter - Exam GENERAL DESCRIPTION: An elderly male lying in bed in no distress RESPIRATORY SYSTEM: Unlabored breathing , decreased breath sounds at bases HEART: S1 S2 regular rate and rhythm , ABDOMEN: Soft , no tenderness EXTREMITIES: No edema feet - Labs CBC & Chem 7: 02/27/25 06:22 02/27/25 06:22 Labs: Abnormal Lab Results - Last 24 Hours (Table) 02/25/25 02/25/25 02/26/25 Range/Units 16:37 20:29 06:00 Plt Count (140-440) 10*3/uL Lymphocytes # (0.90-5.00) 10*3/uL Eosinophils # (0.04-0.35) 10*3/uL Sodium (137-145) mmol/L BUN (9-20) mg/dL Glucose (74-99) mg/dL POC Glucose (mg/dL) 179 H 167 H 120 H (70-110) mg/dL Hemoglobin A1c (<=6.0) % AST (17-59) U/L ALT (4-49) U/L Total Protein (6.3-8.2) g/dL Albumin (3.5-5.0) g/dL 02/26/25 02/26/25 02/26/25 Range/Units 06:36 06:36 06:36 Plt Count 113 L (140-440) 10*3/uL Lymphocytes # 0.59 L (0.90-5.00) 10*3/uL Eosinophils # 0.03 L (0.04-0.35) 10*3/uL Sodium 135 L (137-145) mmol/L BUN 39 H (9-20) mg/dL Glucose 117 H (74-99) mg/dL POC Glucose (mg/dL) (70-110) mg/dL Hemoglobin A1c 7.2 H (<=6.0) % AST 100 H (17-59) U/L ALT 50 H (4-49) U/L Total Protein 5.4 L (6.3-8.2) g/dL Albumin 3.0 L (3.5-5.0) g/dL 02/26/25 Range/Units 11:31 Plt Count (140-440) 10*3/uL Lymphocytes # (0.90-5.00) 10*3/uL Eosinophils # (0.04-0.35) 10*3/uL Sodium (137-145) mmol/L BUN (9-20) mg/dL Glucose (74-99) mg/dL POC Glucose (mg/dL) 139 H (70-110) mg/dL Hemoglobin A1c (<=6.0) % AST (17-59) U/L ALT (4-49) U/L Total Protein (6.3-8.2) g/dL Albumin (3.5-5.0) g/dL Microbiology - Last 24 Hours (Table) 02/24/25 15:43 Urine Culture - Final Urine,Voided 02/24/25 14:14 Blood Culture - Preliminary Blood Assessment and Plan (1) Allergy to multiple antibiotics Current Visit: Yes Status: Acute Code(s): Z88.1 - ALLERGY STATUS TO OTHER ANTIBIOTIC AGENTS SNOMED Code(s): 794948593 (2) Sepsis Current Visit: Yes Status: Acute Code(s): A41.9 - SEPSIS, UNSPECIFIED ORGANISM SNOMED Code(s): 33631344 (3) UTI (urinary tract infection) Current Visit: Yes Status: Acute Code(s): N39.0 - URINARY TRACT INFECTION, SITE NOT SPECIFIED SNOMED Code(s): 97401205 Plan: 1patient presented hospital with sepsis in this patient did have fever tachycardia elevated white count elevated lactic acid mildly criteria for SIRS /sepsis source is urinary in this patient did have a complicated UTI with left- sided hydroureteronephrosis requiring cystoscopy and left ureteral stent placement likely related to enteric gram-negative pathogen. 2patient with multiple antibiotic ALLERGIES that would limit the number of antibiotic safe to use 3patient did have improvement in his fever pattern white count is trending down we will treat with Rocephin while waiting for the culture to finalize Dictation was produced using [employer] dictation software. please excuse any grammatical, word or spelling errors. Time with Patient: Less than 30
--- NOTE | 2025-02-27 14:45 | P.PN ---
Subjective Progress Note Date: 02/27/25 Principal diagnosis: Reason for follow is complicated UTI/sepsis Patient is a 80-year-old male with a past medical history significant for colon and testicular cancer, COPD, Diabetes Mellitus, Eye Disorder, GERD/Reflux, Hyperlipidemia, Hypertension, Prostate Disorder, Sleep Apnea/CPAP/BIPAP, patient has been brought into the hospital for evaluation of mental status changes patient was noted to be septic secondary to the left-sided hydroureteronephrosis status post cystoscopy and left ureteral stent placement On today's evaluation that is 02/27/2025, the patient did have resolution of his fever and is afebrile this morning, patient is breathing comfortably and is on room air denies any chest pain shortness of breath or cough no nausea vomiting no abdominal pain or diarrhea. The patient white count is 4.12, creatinine 0.98 Objective - Vital Signs Vital signs: Vital Signs Temp 98.2 F 02/27/25 07:45 Pulse 78 02/27/25 07:45 Resp 18 02/27/25 08:00 BP 145/81 02/27/25 07:45 Pulse Ox 95 02/27/25 07:45 FiO2 Intake & Output 02/26/25 02/27/25 02/27/25 18:59 06:59 18:59 Intake Total 240 Output Total 1600 2400 Balance -1360 -2400 Weight 94.5 kg Intake: Oral 240 Output: Urine 1600 2400 Other: Voiding Method Indwelling Catheter Indwelling Catheter Indwelling Catheter # Bowel Movements 1 - Exam GENERAL DESCRIPTION: An elderly male lying in bed in no distress RESPIRATORY SYSTEM: Unlabored breathing , decreased breath sounds at bases HEART: S1 S2 regular rate and rhythm , ABDOMEN: Soft , no tenderness EXTREMITIES: No edema feet - Labs CBC & Chem 7: 02/27/25 06:22 02/27/25 06:22 Labs: Abnormal Lab Results - Last 24 Hours (Table) 02/26/25 02/26/25 02/27/25 Range/Units 16:21 20:02 06:03 WBC (4.50-10.00) 10*3/uL Plt Count (140-440) 10*3/uL BUN (9-20) mg/dL Glucose (74-99) mg/dL POC Glucose (mg/dL) 164 H 127 H 119 H (70-110) mg/dL AST (17-59) U/L ALT (4-49) U/L Total Protein (6.3-8.2) g/dL Albumin (3.5-5.0) g/dL 02/27/25 02/27/25 Range/Units 06:22 06:22 WBC 4.12 L (4.50-10.00) 10*3/uL Plt Count 136 L (140-440) 10*3/uL BUN 27 H (9-20) mg/dL Glucose 126 H (74-99) mg/dL POC Glucose (mg/dL) (70-110) mg/dL AST 86 H (17-59) U/L ALT 59 H (4-49) U/L Total Protein 5.8 L (6.3-8.2) g/dL Albumin 3.2 L (3.5-5.0) g/dL Microbiology - Last 24 Hours (Table) 02/24/25 14:14 Blood Culture - Preliminary Blood Assessment and Plan (1) Allergy to multiple antibiotics Current Visit: Yes Status: Acute Code(s): Z88.1 - ALLERGY STATUS TO OTHER ANTIBIOTIC AGENTS SNOMED Code(s): 705716329 (2) Sepsis Current Visit: Yes Status: Acute Code(s): A41.9 - SEPSIS, UNSPECIFIED ORGANISM SNOMED Code(s): 55582830 (3) UTI (urinary tract infection) Current Visit: Yes Status: Acute Code(s): N39.0 - URINARY TRACT INFECTION, SITE NOT SPECIFIED SNOMED Code(s): 77898401 Plan: 1patient presented hospital with sepsis in this patient did have fever tachycardia elevated white count elevated lactic acid mildly criteria for SIRS/sepsis source is urinary in this patient did have a complicated UTI with left-sided hydroureteronephrosis requiring cystoscopy and left ureteral stent placement likely related to enteric gram-negative pathogen. 2patient with multiple antibiotic ALLERGIES that would limit the number of antibiotic safe to use 3patient did have resolution of fever white normalized culture has been negative so far we will repeat a UA and it has normalized may consider oral antibiotic on discharge for now continue with Rocephin Dictation was produced using [employer] dictation software. please excuse any grammatical, word or spelling errors.
[2025-02-27 16:35] LABS: Glucose,Whole Blood 180 mg/dL (70-110)
[2025-02-27 20:08] LABS: Glucose,Whole Blood 184 mg/dL (70-110)
[2025-02-28 06:21] LABS: Glucose,Whole Blood 168 mg/dL (70-110)
[2025-02-28 11:20] LABS: Glucose,Whole Blood 232 mg/dL (70-110)
--- NOTE | 2025-02-28 15:20 | P.PN ---
Subjective Progress Note Date: 02/28/25 Principal diagnosis: Reason for follow is complicated UTI/sepsis Patient is a 80-year-old male with a past medical history significant for colon and testicular cancer, COPD, Diabetes Mellitus, Eye Disorder, GERD/Reflux, Hyperlipidemia, Hypertension, Prostate Disorder, Sleep Apnea/CPAP/BIPAP, patient has been brought into the hospital for evaluation of mental status changes patient was noted to be septic secondary to the left-sided hydroureteronephrosis status post cystoscopy and left ureteral stent placement On today's evaluation that is 02/28/2025, patient did have a temperature of 98 F this morning and denies having any chills, patient is on room air and cody athing comfortably no chest pain or cough, the patient did not have any nausea vomiting abdominal pain or any diarrhea. No new lab has been obtained today repeat UA requested yesterday not obtained Objective - Vital Signs Vital signs: Vital Signs Temp 97.9 F 02/28/25 09:00 Pulse 75 02/28/25 11:17 Resp 16 02/28/25 11:17 BP 152/77 02/28/25 11:17 Pulse Ox 94 L 02/28/25 11:17 FiO2 Intake & Output 02/27/25 02/28/25 02/28/25 18:59 06:59 18:59 Intake Total 900 Output Total 1600 1130 400 Balance -1600 -1130 500 Weight 93.4 kg Intake: Oral 900 Output: Urine 1600 1130 400 Other: Voiding Method Indwelling Catheter Indwelling Catheter Toilet Urinal - Exam GENERAL DESCRIPTION: An elderly male lying in bed in no distress RESPIRATORY SYSTEM: Unlabored breathing , decreased breath sounds at bases HEART: S1 S2 regular rate and rhythm , ABDOMEN: Soft , no tenderness EXTREMITIES: No edema feet - Labs CBC & Chem 7: 02/27/25 06:22 02/27/25 06:22 Labs: Abnormal Lab Results - Last 24 Hours (Table) 02/27/25 02/27/25 02/28/25 Range/Units 16:34 20:06 06:17 POC Glucose (mg/dL) 180 H 184 H 168 H (70-110) mg/dL 02/28/25 Range/Units 11:19 POC Glucose (mg/dL) 232 H (70-110) mg/dL Microbiology - Last 24 Hours (Table) 02/24/25 14:14 Blood Culture - Preliminary Blood Assessment and Plan (1) Allergy to multiple antibiotics Current Visit: Yes Status: Acute Code(s): Z88.1 - ALLERGY STATUS TO OTHER ANTIBIOTIC AGENTS SNOMED Code(s): 954336278 (2) Sepsis Current Visit: Yes Status: Acute Code(s): A41.9 - SEPSIS, UNSPECIFIED ORGANISM SNOMED Code(s): 35807366 (3) UTI (urinary tract infection) Current Visit: Yes Status: Acute Code(s): N39.0 - URINARY TRACT INFECTION, SITE NOT SPECIFIED SNOMED Code(s): 85079719 Plan: 1patient presented hospital with sepsis in this patient did have fever tachycardia elevated white count elevated lactic acid mildly criteria for SIRS/sepsis source is urinary in this patient did have a complicated UTI with left-sided hydroureteronephrosis requiring cystoscopy and left ureteral stent placement likely related to enteric gram-negative pathogen. 2patient with multiple antibiotic ALLERGIES that would limit the number of antibiotic safe to use 3patient did have resolution of fever white normalized culture has been negative, repeat UA was requested not collected Padilla catheter has been discontinued will wait for repeat UA for now continue with Rocephin Dictation was produced using [employer] dictation software. please excuse any grammatical, word or spelling errors. Time with Patient: Less than 30
[2025-02-28 15:58] LABS: Bilirubin,Urine Negative (Negative); Blood,Urine Large (Negative); Budding Yeast,Urine Few /hpf; Color,Urine Light Yellow; Glucose,Urine (UA) 4+ (Negative); Ketones,Urine Negative (Negative); Leukocyte Esterase,Urine Large (Negative); Mucus,Urine Rare /hpf; Nitrite,Urine Negative (Negative); PH, Urine 5.5 (5.0-8.0); Protein,Urine Trace (Negative); RBC,Urine 141 /hpf (0-5); Specific Gravity,Urine 1.015 (1.001-1.035); Squamous Epithelial Cell,Urine <1 /hpf (0-4); Urobilinogen,Urine <2.0 mg/dL (<2.0); WBC,Urine 89 /hpf (0-5)
--- NOTE | 2025-02-28 16:18 | P.PN ---
Subjective Progress Note Date: 02/27/25 80-year-old gentleman with past medical history significant for insulin- dependent diabetes mellitus, bladder cancer presented the ER because of altered mental status. Patient was all right yesterday when he was complaining of some left flank pain, at that time patient went to stand-alone ER in [place], they did a CT scan showing left ureteral stone, patient was discharged on medications and was told to follow-up outpatient with his urologist. On coming back home patient continues to had flank pain, patient was getting more confused. Patient started spiking fevers and was complaining of chills. Because of the symptoms, EMS was called and the right, patient was found to be short of breath. Patient brought to the ER at [place] Initial lab work done in the ER showed WBC 14.41, hemoglobin 3.6, platelet count 140, sodium 130, potassium 4.4, BUN 34, creatinine 2.21, lactate 3.2, bilirubin 1.7, AST 37, ALT 28, proBNP 2880 UA done showed large amount of leukocyte Estrace,Urine WBC 182, Chest x-ray done in the ER showed diffuse interstitial densities, correlate for pulmonary congestion versus bronchitis versus atypical pneumonia CT head done showed no acute intracranial process, mild elevation of the ventricular system which may be related to level of subdural prophy with normal pressure hydrocephalus not excluded CT abdominal pelvis done showed mild left hydroureteronephrosis with a 7 mm calculus in the upper left ureter, nonobstructing bilateral renal calculi. Contrast filled urinary bladder without filling defect Patient admitted to internal medicine service Objective - Vital Signs Vital signs: Vital Signs Temp 98.2 F 02/27/25 07:45 Pulse 78 02/27/25 07:45 Resp 18 02/27/25 08:00 BP 145/81 02/27/25 07:45 Pulse Ox 95 02/27/25 07:45 FiO2 Intake & Output 02/26/25 02/27/25 02/27/25 18:59 06:59 18:59 Intake Total 240 Output Total 1600 2400 Balance -1360 -2400 Weight 94.5 kg Intake: Oral 240 Output: Urine 1600 2400 Other: Voiding Method Indwelling Catheter Indwelling Catheter Indwelling Catheter # Bowel Movements 1 - Exam GENERAL: The patient is alert and oriented x3, not in any acute distress. Well developed, well nourished. HEENT: Pupils are round and equally reacting to light. EOMI. No scleral icterus. No conjunctival pallor. Normocephalic, atraumatic. No pharyngeal erythema. No thyromegaly. CARDIOVASCULAR: S1 and S2 present. No murmurs, rubs, or gallops. PULMONARY: Chest is clear to auscultation, no wheezing or crackles. ABDOMEN: Soft, nontender, nondistended, normoactive bowel sounds. No palpable organomegaly. MUSCULOSKELETAL: No joint swelling or deformity. EXTREMITIES: No cyanosis, clubbing, or pedal edema. NEUROLOGICAL: Gross neurological examination did not reveal any focal deficits. SKIN: No rashes. - Labs CBC & Chem 7: 02/27/25 06:22 02/27/25 06:22 Labs: Abnormal Lab Results - Last 24 Hours (Table) 02/26/25 02/26/25 02/26/25 Range/Units 11:31 16:21 20:02 WBC (4.50-10.00) 10*3/uL Plt Count (140-440) 10*3/uL BUN (9-20) mg/dL Glucose (74-99) mg/dL POC Glucose (mg/dL) 139 H 164 H 127 H (70-110) mg/dL AST (17-59) U/L ALT (4-49) U/L Total Protein (6.3-8.2) g/dL Albumin (3.5-5.0) g/dL 02/27/25 02/27/25 02/27/25 Range/Units 06:03 06:22 06:22 WBC 4.12 L (4.50-10.00) 10*3/uL Plt Count 136 L (140-440) 10*3/uL BUN 27 H (9-20) mg/dL Glucose 126 H (74-99) mg/dL POC Glucose (mg/dL) 119 H (70-110) mg/dL AST 86 H (17-59) U/L ALT 59 H (4-49) U/L Total Protein 5.8 L (6.3-8.2) g/dL Albumin 3.2 L (3.5-5.0) g/dL Microbiology - Last 24 Hours (Table) 02/24/25 14:14 Blood Culture - Preliminary Blood Assessment and Plan Assessment: Sepsis Acute infectious encephalopathy Lactic acidosis Acute kidney injury Left hydroureteronephrosis Left ureteric stone Acute hypoxic respiratory failure History of bladder cancer History of diabetes mellitus Monitor vital signs Monitor CBC Monitor CMP Continue telemetry monitoring Follow-up on blood cultures Follow-up on urine culture Continue IV Rocephin Urology were consulted, patient underwent cystoscopy with left stent insertion. ID following
--- NOTE | 2025-02-28 16:21 | P.PN ---
Subjective Progress Note Date: 02/28/25 80-year-old gentleman with past medical history significant for insulin- dependent diabetes mellitus, bladder cancer presented the ER because of altered mental status. Patient was all right yesterday when he was complaining of some left flank pain, at that time patient went to stand-alone ER in [place], they did a CT scan showing left ureteral stone, patient was discharged on medications and was told to follow-up outpatient with his urologist. On coming back home patient continues to had flank pain, patient was getting more confused. Patient started spiking fevers and was complaining of chills. Because of the symptoms, EMS was called and the right, patient was found to be short of breath. Patient brought to the ER at [place] Initial lab work done in the ER showed WBC 14.41, hemoglobin 3.6, platelet count 140, sodium 130, potassium 4.4, BUN 34, creatinine 2.21, lactate 3.2, bilirubin 1.7, AST 37, ALT 28, proBNP 2880 UA done showed large amount of leukocyte Estrace,Urine WBC 182, Chest x-ray done in the ER showed diffuse interstitial densities, correlate for pulmonary congestion versus bronchitis versus atypical pneumonia CT head done showed no acute intracranial process, mild elevation of the ventricular system which may be related to level of subdural prophy with normal pressure hydrocephalus not excluded CT abdominal pelvis done showed mild left hydroureteronephrosis with a 7 mm calculus in the upper left ureter, nonobstructing bilateral renal calculi. Contrast filled urinary bladder without filling defect Patient admitted to internal medicine service 02/28/2025 Patient is seen and evaluated in room at bedside Vital signs are reviewed and are stable patient presented hospital with sepsis in this patient did have fever tachycardia elevated white count elevated lactic acid mildly criteria for SIRS/sepsis source is urinary in this patient did have a complicated UTI with left-sided hydroureteronephrosis requiring cystoscopy and left ureteral stent placement likely related to enteric gram-negative pathogen. patient with multiple antibiotic ALLERGIES that would limit the number of antibiotic safe to use patient did have resolution of fever white normalized culture has been negative, repeat UA was requested not collected Padilla catheter has been discontinued will wait for repeat UA for now continue with Rocephin Objective - Vital Signs Vital signs: Vital Signs Temp 97.9 F 02/28/25 09:00 Pulse 82 02/28/25 09:00 Resp 17 02/28/25 09:00 BP 136/80 02/28/25 09:00 Pulse Ox 96 02/28/25 09:00 FiO2 Intake & Output 02/27/25 02/28/25 02/28/25 18:59 06:59 18:59 Output Total 1600 1130 Balance -1600 -1130 Weight 93.4 kg Output: Urine 1600 1130 Other: Voiding Method Indwelling Catheter Indwelling Catheter Indwelling Catheter - Exam GENERAL: The patient is alert and oriented x3, not in any acute distress. Well developed, well nourished. HEENT: Pupils are round and equally reacting to light. EOMI. No scleral icterus. No conjunctival pallor. Normocephalic, atraumatic. No pharyngeal erythema. No thyromegaly. CARDIOVASCULAR: S1 and S2 present. No murmurs, rubs, or gallops. PULMONARY: Chest is clear to auscultation, no wheezing or crackles. ABDOMEN: Soft, nontender, nondistended, normoactive bowel sounds. No palpable organomegaly. MUSCULOSKELETAL: No joint swelling or deformity. EXTREMITIES: No cyanosis, clubbing, or pedal edema. NEUROLOGICAL: Gross neurological examination did not reveal any focal deficits. SKIN: No rashes. - Labs CBC & Chem 7: 02/27/25 06:22 02/27/25 06:22 Labs: Abnormal Lab Results - Last 24 Hours (Table) 02/27/25 02/27/25 02/27/25 Range/Units 11:36 16:34 20:06 POC Glucose (mg/dL) 200 H 180 H 184 H (70-110) mg/dL 02/28/25 Range/Units 06:17 POC Glucose (mg/dL) 168 H (70-110) mg/dL Microbiology - Last 24 Hours (Table) 02/24/25 14:14 Blood Culture - Preliminary Blood Assessment and Plan Assessment: Sepsis Acute infectious encephalopathy Lactic acidosis Acute kidney injury Left hydroureteronephrosis Left ureteric stone Acute hypoxic respiratory failure History of bladder cancer History of diabetes mellitus Monitor vital signs Monitor CBC Monitor CMP Continue telemetry monitoring Follow-up on blood cultures Follow-up on urine culture Continue IV Rocephin Urology were consulted, patient underwent cystoscopy with left stent insertion. ID following
[2025-02-28 16:23] LABS: Glucose,Whole Blood 161 mg/dL (70-110)
[2025-02-28 20:00] LABS: Glucose,Whole Blood 191 mg/dL (70-110)
[2025-03-01 06:06] LABS: Glucose,Whole Blood 185 mg/dL (70-110)
[2025-03-01 06:54] LABS: Basophils # (A) 0.06 10*3/uL (0.00-0.10); Basophils % (A) 1.0 %; Eosinophils # (A) 0.23 10*3/uL (0.04-0.35); Eosinophils % (A) 3.8 %; HCT 44.2 % (39.6-50.0); HGB 14.5 g/dL (13.0-17.0); Lymphocytes # (A) 1.91 10*3/uL (0.90-5.00); Lymphocytes % (A) 31.4 %; MCH 27.5 pg (27.0-32.0); MCHC 32.8 g/dL (32.0-37.0); MCV 83.7 fL (80.0-97.0); Monocytes # (A) 0.55 10*3/uL (0.20-1.00); Monocytes % (A) 9.0 %; Neutrophils # (A) 3.28 10*3/uL (1.80-7.70); Neutrophils % (A) 53.8 %; Platelet Count 163 10*3/uL (140-440); RBC 5.28 10*6/uL (4.40-5.60); RDW 13.9 % (11.5-14.5); WBC 6.09 10*3/uL (4.50-10.00)
[2025-03-01 07:26] LABS: African American GFR (CKD) >90 (>60 ml/min/1.73 sqM); Anion Gap 7 mmol/L; Blood Urea Nitrogen 24 mg/dL (9-20); Calcium 9.1 mg/dL (8.4-10.2); Carbon Dioxide 27 mmol/L (22-30); Chloride 104 mmol/L (98-107); Glucose 156 mg/dL (74-99); Non-African American GFR(CKD) 83 (>60 ml/min/1.73 sqM); Potassium 4.4 mmol/L (3.5-5.1); Sodium 138 mmol/L (137-145)
[2025-03-01 11:03] LABS: Glucose,Whole Blood 176 mg/dL (70-110)
--- NOTE | 2025-03-01 14:43 | P.PN ---
Subjective Progress Note Date: 03/01/25 80-year-old gentleman with past medical history significant for insulin- dependent diabetes mellitus, bladder cancer presented the ER because of altered mental status. Patient was all right yesterday when he was complaining of some left flank pain, at that time patient went to stand-alone ER in [place], they did a CT scan showing left ureteral stone, patient was discharged on medications and was told to follow-up outpatient with his urologist. On coming back home patient continues to had flank pain, patient was getting more confused. Patient started spiking fevers and was complaining of chills. Because of the symptoms, EMS was called and the right, patient was found to be short of breath. Patient brought to the ER at [facility] Initial lab work done in the ER showed WBC 14.41, hemoglobin 3.6, platelet count 140, sodium 130, potassium 4.4, BUN 34, creatinine 2.21, lactate 3.2, bilirubin 1.7, AST 37, ALT 28, proBNP 2880 UA done showed large amount of leukocyte Estrace,Urine WBC 182, Chest x-ray done in the ER showed diffuse interstitial densities, correlate for pulmonary congestion versus bronchitis versus atypical pneumonia CT head done showed no acute intracranial process, mild elevation of the ventricular system which may be related to level of subdural prophy with normal pressure hydrocephalus not excluded CT abdominal pelvis done showed mild left hydroureteronephrosis with a 7 mm calculus in the upper left ureter, nonobstructing bilateral renal calculi. Contrast filled urinary bladder without filling defect Patient admitted to internal medicine service 02/28/2025 Patient is seen and evaluated in room at bedside Vital signs are reviewed and are stable patient presented hospital with sepsis in this patient did have fever tachycardia elevated white count elevated lactic acid mildly criteria for SIRS/sepsis source is urinary in this patient did have a complicated UTI with left-sided hydroureteronephrosis requiring cystoscopy and left ureteral stent placement likely related to enteric gram-negative pathogen. patient with multiple antibiotic ALLERGIES that would limit the number of antibiotic safe to use patient did have resolution of fever white normalized culture has been negative, repeat UA was requested not collected Padilla catheter has been discontinued will wait for repeat UA for now continue with Rocephin 03/01/2025 Patient is seen and evaluated sitting up in bedside chair; denies any specific complaint Vital signs are stable; labs are reviewed and white blood count remains normal at 6.09, hemoglobin 14.5 and platelet count of 163, sodium 138, potassium 4.4, BUN/creatinine of 24/0.87 - Urine culture repeated yesterday and is still pending; patient remains on IV Rocephin - ID on board and recommending to continue with IV antibiotics till repeat cultures are available Plan discussed with patient and he is agreeable Objective - Vital Signs Vital signs: Vital Signs Temp 97.7 F 03/01/25 08:54 Pulse 73 03/01/25 08:54 Resp 16 03/01/25 08:54 BP 137/74 03/01/25 08:54 Pulse Ox 94 L 03/01/25 08:54 FiO2 Intake & Output 02/28/25 03/01/25 03/01/25 18:59 06:59 18:59 Intake Total 1140 350 Output Total 1200 Balance -60 350 Weight 93.4 kg Intake: Oral 1140 350 Output: Urine 1200 Other: Voiding Method Toilet Toilet Urinal Urinal # Voids 1 1 - Exam GENERAL: The patient is alert and oriented x3, not in any acute distress. Well developed, well nourished. HEENT: Pupils are round and equally reacting to light. EOMI. No scleral icterus. No conjunctival pallor. Normocephalic, atraumatic. No pharyngeal erythema. No thyromegaly. CARDIOVASCULAR: S1 and S2 present. No murmurs, rubs, or gallops. PULMONARY: Chest is clear to auscultation, no wheezing or crackles. ABDOMEN: Soft, nontender, nondistended, normoactive bowel sounds. No palpable organomegaly. MUSCULOSKELETAL: No joint swelling or deformity. EXTREMITIES: No cyanosis, clubbing, or pedal edema. NEUROLOGICAL: Gross neurological examination did not reveal any focal deficits. SKIN: No rashes. - Labs CBC & Chem 7: 03/01/25 06:39 03/01/25 06:39 Labs: Abnormal Lab Results - Last 24 Hours (Table) 02/28/25 02/28/25 02/28/25 Range/Units 11:19 15:40 16:21 Immature Gran # (0.00-0.04) 10*3/uL BUN (9-20) mg/dL Glucose (74-99) mg/dL POC Glucose (mg/dL) 232 H 161 H (70-110) mg/dL Urine Protein Trace H (Negative) Urine Glucose (UA) 4+ H (Negative) Urine Blood Large H (Negative) Ur Leukocyte Esterase Large H (Negative) Urine RBC 141 H (0-5) /hpf Urine WBC 89 H (0-5) /hpf Urine WBC Clumps Rare H (None) /hpf Urine Mucus Rare H (None) /hpf Urine Yeast (Budding) Few H (None) /hpf 02/28/25 03/01/25 03/01/25 Range/Units 19:57 06:04 06:39 Immature Gran # 0.06 H (0.00-0.04) 10*3/uL BUN (9-20) mg/dL Glucose (74-99) mg/dL POC Glucose (mg/dL) 191 H 185 H (70-110) mg/dL Urine Protein (Negative) Urine Glucose (UA) (Negative) Urine Blood (Negative) Ur Leukocyte Esterase (Negative) Urine RBC (0-5) /hpf Urine WBC (0-5) /hpf Urine WBC Clumps (None) /hpf Urine Mucus (None) /hpf Urine Yeast (Budding) (None) /hpf 03/01/25 Range/Units 06:39 Immature Gran # (0.00-0.04) 10*3/uL BUN 24 H (9-20) mg/dL Glucose 156 H (74-99) mg/dL POC Glucose (mg/dL) (70-110) mg/dL Urine Protein (Negative) Urine Glucose (UA) (Negative) Urine Blood (Negative) Ur Leukocyte Esterase (Negative) Urine RBC (0-5) /hpf Urine WBC (0-5) /hpf Urine WBC Clumps (None) /hpf Urine Mucus (None) /hpf Urine Yeast (Budding) (None) /hpf Assessment and Plan Assessment: Sepsis Acute infectious encephalopathy Lactic acidosis Acute kidney injury Left hydroureteronephrosis Left ureteric stone Acute hypoxic respiratory failure History of bladder cancer History of diabetes mellitus Monitor vital signs Monitor CBC Monitor CMP Continue telemetry monitoring Follow-up on blood cultures Follow-up on urine culture Continue IV Rocephin Urology were consulted, patient underwent cystoscopy with left stent insertion. ID following
[2025-03-01 16:22] LABS: Glucose,Whole Blood 246 mg/dL (70-110)
[2025-03-01 20:11] LABS: Glucose,Whole Blood 220 mg/dL (70-110)
[2025-03-02 05:20] LABS: Basophils # (A) 0.07 10*3/uL (0.00-0.10); Basophils % (A) 1.0 %; Eosinophils # (A) 0.29 10*3/uL (0.04-0.35); Eosinophils % (A) 4.0 %; HCT 40.1 % (39.6-50.0); HGB 13.4 g/dL (13.0-17.0); Lymphocytes # (A) 2.23 10*3/uL (0.90-5.00); Lymphocytes % (A) 30.9 %; MCH 28.0 pg (27.0-32.0); MCHC 33.4 g/dL (32.0-37.0); MCV 83.7 fL (80.0-97.0); Monocytes # (A) 0.57 10*3/uL (0.20-1.00); Monocytes % (A) 7.9 %; Neutrophils # (A) 3.91 10*3/uL (1.80-7.70); Neutrophils % (A) 54.1 %; Platelet Count 170 10*3/uL (140-440); RBC 4.79 10*6/uL (4.40-5.60); RDW 13.5 % (11.5-14.5); WBC 7.22 10*3/uL (4.50-10.00)
[2025-03-02 05:41] LABS: African American GFR (CKD) >90 (>60 ml/min/1.73 sqM); Anion Gap 10 mmol/L; Blood Urea Nitrogen 23 mg/dL (9-20); Calcium 9.3 mg/dL (8.4-10.2); Carbon Dioxide 24 mmol/L (22-30); Chloride 103 mmol/L (98-107); Glucose 203 mg/dL (74-99); Non-African American GFR(CKD) 86 (>60 ml/min/1.73 sqM); Potassium 4.1 mmol/L (3.5-5.1); Sodium 137 mmol/L (137-145)
[2025-03-02 05:48] LABS: Glucose,Whole Blood 217 mg/dL (70-110)
[2025-03-02 10:35] VITALS: PULSE 73; RESP 18; TEMP 97.8
[2025-03-02 11:47] LABS: Glucose,Whole Blood 175 mg/dL (70-110)
--- NOTE | 2025-03-02 12:29 | P.PN ---
Subjective Progress Note Date: 03/01/25 Principal diagnosis: Reason for follow is complicated UTI/sepsis Patient is a 80-year-old male with a past medical history significant for colon and testicular cancer, COPD, Diabetes Mellitus, Eye Disorder, GERD/Reflux, Hyperlipidemia, Hypertension, Prostate Disorder, Sleep Apnea/CPAP/BIPAP, patient has been brought into the hospital for evaluation of mental status changes patient was noted to be septic secondary to the left-sided hydroureteronephrosis status post cystoscopy and left ureteral stent placement On today's evaluation that is 03/01/2025, Patient is afebrile patient is currently on room air and denies having any shortness of breath, the patient denies any chest pain or cough, the patient denies any nausea vomiting did not have any abdominal pain and no diarrhea patient did have dysfunctioning Padilla catheter able to urinate. Patient white count 6.09, creatinine 0.87 Objective - Vital Signs Vital signs: Vital Signs Temp 97.7 F 03/01/25 08:54 Pulse 92 03/01/25 11:27 Resp 18 03/01/25 11:27 BP 119/73 03/01/25 11:27 Pulse Ox 98 03/01/25 11:27 FiO2 Intake & Output 02/28/25 03/01/25 03/01/25 18:59 06:59 18:59 Intake Total 1140 350 Output Total 1200 Balance -60 350 Weight 93.4 kg Intake: Oral 1140 350 Output: Urine 1200 Other: Voiding Method Toilet Toilet Toilet Urinal Urinal Urinal # Voids 1 1 - Exam GENERAL DESCRIPTION: An elderly male lying in bed in no distress RESPIRATORY SYSTEM: Unlabored breathing , decreased breath sounds at bases HEART: S1 S2 regular rate and rhythm , ABDOMEN: Soft , no tenderness EXTREMITIES: No edema feet - Labs CBC & Chem 7: 03/02/25 04:50 03/02/25 04:50 Labs: Abnormal Lab Results - Last 24 Hours (Table) 02/28/25 02/28/25 02/28/25 Range/Units 15:40 16:21 19:57 Immature Gran # (0.00-0.04) 10*3/uL BUN (9-20) mg/dL Glucose (74-99) mg/dL POC Glucose (mg/dL) 161 H 191 H (70-110) mg/dL Urine Protein Trace H (Negative) Urine Glucose (UA) 4+ H (Negative) Urine Blood Large H (Negative) Ur Leukocyte Esterase Large H (Negative) Urine RBC 141 H (0-5) /hpf Urine WBC 89 H (0-5) /hpf Urine WBC Clumps Rare H (None) /hpf Urine Mucus Rare H (None) /hpf Urine Yeast (Budding) Few H (None) /hpf 03/01/25 03/01/25 03/01/25 Range/Units 06:04 06:39 06:39 Immature Gran # 0.06 H (0.00-0.04) 10*3/uL BUN 24 H (9-20) mg/dL Glucose 156 H (74-99) mg/dL POC Glucose (mg/dL) 185 H (70-110) mg/dL Urine Protein (Negative) Urine Glucose (UA) (Negative) Urine Blood (Negative) Ur Leukocyte Esterase (Negative) Urine RBC (0-5) /hpf Urine WBC (0-5) /hpf Urine WBC Clumps (None) /hpf Urine Mucus (None) /hpf Urine Yeast (Budding) (None) /hpf 03/01/25 Range/Units 11:01 Immature Gran # (0.00-0.04) 10*3/uL BUN (9-20) mg/dL Glucose (74-99) mg/dL POC Glucose (mg/dL) 176 H (70-110) mg/dL Urine Protein (Negative) Urine Glucose (UA) (Negative) Urine Blood (Negative) Ur Leukocyte Esterase (Negative) Urine RBC (0-5) /hpf Urine WBC (0-5) /hpf Urine WBC Clumps (None) /hpf Urine Mucus (None) /hpf Urine Yeast (Budding) (None) /hpf Assessment and Plan (1) Allergy to multiple antibiotics Current Visit: Yes Status: Acute Code(s): Z88.1 - ALLERGY STATUS TO OTHER ANTIBIOTIC AGENTS SNOMED Code(s): 500139969 (2) Sepsis Current Visit: Yes Status: Acute Code(s): A41.9 - SEPSIS, UNSPECIFIED ORGANISM SNOMED Code(s): 08889502 (3) UTI (urinary tract infection) Current Visit: Yes Status: Acute Code(s): N39.0 - URINARY TRACT INFECTION, SITE NOT SPECIFIED SNOMED Code(s): 40928054 Plan: 1patient presented hospital with sepsis in this patient did have fever tachycardia elevated white count elevated lactic acid mildly criteria for SIRS/sepsis source is urinary in this patient did have a complicated UTI with left-sided hydroureteronephrosis requiring cystoscopy and left ureteral stent placement likely related to enteric gram-negative pathogen. 2patient with multiple antibiotic ALLERGIES that would limit the number of antibiotic safe to use 3patient did have resolution of fever white normalized culture has been negative, repeat UA was requested not collected only cultures were done and which are currently pending for now continue with Víctor Dictation was produced using [employer] dictation software. please excuse any grammatical, word or spelling errors. Time with Patient: Less than 30
--- NOTE | 2025-03-02 12:29 | P.PN ---
Subjective Progress Note Date: 03/02/25 Principal diagnosis: Reason for follow is complicated UTI/sepsis Patient is a 80-year-old male with a past medical history significant for colon and testicular cancer, COPD, Diabetes Mellitus, Eye Disorder, GERD/Reflux, Hyperlipidemia, Hypertension, Prostate Disorder, Sleep Apnea/CPAP/BIPAP, patient has been brought into the hospital for evaluation of mental status changes patient was noted to be septic secondary to the left-sided hydroureteronephrosis status post cystoscopy and left ureteral stent placement On today's evaluation that is 03/02/2025 the patient continues to be afebrile the patient is breathing comfortably on room air no chest pain shortness of b reath or cough no nausea vomiting no abdominal pain no diarrhea did have improvement in urinary symptoms feeling better. Patient white count 7.22, creatinine 0.7 9 repeat urine cultures currently pend ing Objective - Vital Signs Vital signs: Vital Signs Temp 97.8 F 03/02/25 09:35 Pulse 73 03/02/25 09:35 Resp 18 03/02/25 09:35 BP 120/76 03/02/25 09:35 Pulse Ox 95 03/02/25 09:35 FiO2 Intake & Output 03/01/25 03/02/25 03/02/25 18:59 06:59 18:59 Intake Total 815 240 480 Output Total 300 200 200 Balance 515 40 280 Weight 93.3 kg Intake: Oral 815 240 480 Output: Urine 300 200 200 Other: Voiding Method Toilet Toilet Toilet Urinal Urinal Urinal # Voids 2 1 - Exam GENERAL DESCRIPTION: An elderly male lying in bed in no distress RESPIRATORY SYSTEM: Unlabored breathing , decreased breath sounds at bases HEART: S1 S2 regular rate and rhythm , ABDOMEN: Soft , no tenderness EXTREMITIES: No edema feet - Labs CBC & Chem 7: 03/02/25 04:50 03/02/25 04:50 Labs: Abnormal Lab Results - Last 24 Hours (Table) 03/01/25 03/01/25 03/02/25 Range/Units 16:21 20:09 04:50 Immature Gran # 0.15 H (0.00-0.04) 10*3/uL BUN (9-20) mg/dL Glucose (74-99) mg/dL POC Glucose (mg/dL) 246 H 220 H (70-110) mg/dL 03/02/25 03/02/25 03/02/25 Range/Units 04:50 05:47 11:46 Immature Gran # (0.00-0.04) 10*3/uL BUN 23 H (9-20) mg/dL Glucose 203 H (74-99) mg/dL POC Glucose (mg/dL) 217 H 175 H (70-110) mg/dL Microbiology - Last 24 Hours (Table) 02/24/25 14:14 Blood Culture - Final Blood Assessment and Plan (1) Allergy to multiple antibiotics Current Visit: Yes Status: Acute Code(s): Z88.1 - ALLERGY STATUS TO OTHER ANTIBIOTIC AGENTS SNOMED Code(s): 552920211 (2) Sepsis Current Visit: Yes Status: Acute Code(s): A41.9 - SEPSIS, UNSPECIFIED ORGANISM SNOMED Code(s): 29821838 (3) UTI (urinary tract infection) Current Visit: Yes Status: Acute Code(s): N39.0 - URINARY TRACT INFECTION, SITE NOT SPECIFIED SNOMED Code(s): 19038641 Plan: 1patient presented hospital with sepsis in this patient did have fever tachycardia elevated white count elevated lactic acid mildly criteria for SIRS/sepsis source is urinary in this patient did have a complicated UTI with left-sided hydroureteronephrosis requiring cystoscopy and left ureteral stent placement likely related to enteric gram-negative pathogen. 2patient with multiple antibiotic ALLERGIES that would limit the number of antibiotic safe to use 3patient did have resolution of fever white normalized culture has been negative, keeping in mind the patient showed improvement on Rocephin will finish therapy with oral Ceftin and close outpatient follow-up prescription sent to the pharmacy Dictation was produced using [employer] dictation software. please excuse any grammatical, word or spelling errors. Time with Patient: Less than 30
[2025-03-02 16:50] VITALS: BP 146/77
--- NOTE | 2025-03-03 00:30 | P.DS ---
Providers Date of admission: 02/24/25 18:03 Attending physician: Tonny Vanessa MD Consults: 02/24/25 18:00 Consult Physician Urgent Consulting Provider: Oskar Yang Consult Reason/Comments: ureteral stone with sepsis Do you want consulting provider notified?: Already Contacted 02/24/25 19:52 Consult Physician Urgent Consulting Provider: Tonny Vanessa Consult Reason/Comments: sepsis Do you want consulting provider notified?: Already Contacted 02/24/25 23:48 Consult Physician Urgent Consulting Provider: Riana Masters Consult Reason/Comments: sepsis Do you want consulting provider notified?: Yes, Notify in am Primary care physician: Chinedu Ceron [facility] Course: Diagnoses: Acute urinary tract infection Sepsis Acute infectious encephalopathy Lactic acidosis Acute kidney injury Left hydroureteronephrosis Left ureteric stone Acute hypoxic respiratory failure History of bladder cancer History of diabetes mellitus Hospital course: 80-year-old gentleman with past medical history significant for insulin- dependent diabetes mellitus, bladder cancer presented the ER because of altered mental status. he did a CT scan showing left ureteral stone, patient was discharged on medications and was told to follow-up outpatient with his urologist. On coming back home patient continues to had flank pain, patient was getting more confused. Patient returned back to emergency room.T abdominal pelvis done showed mild left hydroureteronephrosis with a 7 mm calculus in the upper left ureter, nonobstructing bilateral renal calculi. Contrast filled urinary bladder without filling defect Patient today feels fine and he wants to go home and follow-up outpatient No abdominal pain no dysuria. Other than that his mentation at baseline. He can walk with no difficulty. His urinary symptoms improved Patient was cleared for discharge by all consultants including neurologist and ID team Patient will be discharged on short course of oral antibiotics per ID team Problems and management plan were discussed with the patient and he verbalized understanding and acceptance Patient was found stable and can be discharged home in guarded prognosis however he needs follow-up as an outpatient. Patient was instructed to follow up with PCP within one week and patient agrees Patient told me he is willing to follow-up with Dr. Mccartney his urologist within 1 week Physical exam Gen: patient is a AAOx3, no distress CVS: S1-S2, RRR, no murmur Lungs: B/L CTA, no wheezing Abdomen: soft, no distention, no tenderness, positive bowel sounds Extremity: no leg edema or induration Time spent more than 35 minutes Patient started spiking fevers and was complaining of chills. Because of the symptoms, EMS was called and the right, patient was found to be short of breath. Patient brought to the ER at [facility] Initial lab work done in the ER showed WBC 14.41, hemoglobin 3.6, platelet count 140, sodium 130, potassium 4.4, BUN 34, creatinine 2.21, lactate 3.2, bilirubin 1.7, AST 37, ALT 28, proBNP 2880 UA done showed large amount of leukocyte Estrace,Urine WBC 182, Chest x-ray done in the ER showed diffuse interstitial densities, correlate for pulmonary congestion versus bronchitis versus atypical pneumonia CT head done showed no acute intracranial process, mild elevation of the ventricular system which may be related to level of subdural prophy with normal pressure hydrocephalus not excluded CT abdominal pelvis done showed mild left hydroureteronephrosis with a 7 mm calculus in the upper left ureter, nonobstructing bilateral renal calculi. Contrast filled urinary bladder without filling defect Patient admitted to internal medicine service 02/28/2025 Patient is seen and evaluated in room at bedside Vital signs are reviewed and are stable patient presented hospital with sepsis in this patient did have fever tachycardia elevated white count elevated lactic acid mildly criteria for SIRS/sepsis source is urinary in this patient did have a complicated UTI with left-sided hydroureteronephrosis requiring cystoscopy and left ureteral stent placement likely related to enteric gram-negative pathogen. patient with multiple antibiotic ALLERGIES that would limit the number of antibiotic safe to use patient did have resolution of fever white normalized culture has been negative, repeat UA was requested not collected Padilla catheter has been discontinued will wait for repeat UA for now continue with Rocephin 03/01/2025 Patient is seen and evaluated sitting up in bedside chair; denies any specific complaint Vital signs are stable; labs are reviewed and white blood count remains normal at 6.09, hemoglobin 14.5 and platelet count of 163, sodium 138, potassium 4.4, BUN/creatinine of 24/0.87 - Urine culture repeated yesterday and is still pending; patient remains on IV Rocephin - ID on board and recommending to continue with IV antibiotics till repeat cultures are available Plan discussed with patient and he is agreeable Patient Condition at Discharge: Serious Plan - Discharge Summary Discharge Rx Participant: Yes New Discharge Prescriptions: New cefuroxime axetiL [Ceftin] 500 mg PO BID #20 tab Continue Corona-3 Fatty Acids/Fish Oil [Fish Oil 1,000 mg Softgel] 1 cap PO HS Ascorbic Acid [Vitamin C] 500 mg PO HS Multivitamins, Thera [Multivitamin (formulary)] 1 tab PO DAILY Gabapentin 600 mg PO TID gemfibroziL [Lopid] 600 mg PO BID Prostate Herbal Combo 1 tab PO BID Ezetimibe [Zetia] 10 mg PO DAILY Omeprazole [PriLOSEC] 20 mg PO BID Empagliflozin [Jardiance] 25 mg PO DAILY HYDROcodone/APAP 5-325MG [Crawford 5-325] 1 tab PO BID PRN PRN Reason: Pain EPINEPHrine (Auto Inject) [Epipen] 0.3 mg IM ONCE PRN PRN Reason: Anaphylaxis Ergocalciferol [Vitamin D2 (1250 Mcg = 41962 Iu)] 1,250 mcg PO TH Tirzepatide [Mounjaro] 12.5 mg SQ TU Insulin Glargine,Hum.rec.anlog [Lantus Solostar Pen] 30 units SQ DAILY Ondansetron [Zofran] 4 mg PO BID PRN PRN Reason: Nausea And Vomiting Cinnamon Bark [Cinnamon] 500 mg PO BID Discontinued Zolpidem [Ambien] 5 mg PO HS PRN PRN Reason: Insomnia No Action Testosterone [Androgel 1.62% Gel Pump] 1 applic TOPICAL DAILY Discharge Medication List Ascorbic Acid [Vitamin C] 500 mg PO HS 10/01/17 [History] Ezetimibe [Zetia] 10 mg PO DAILY 10/01/17 [History] Gabapentin 600 mg PO TID 10/01/17 [History] Multivitamins, Thera [Multivitamin (formulary)] 1 tab PO DAILY 10/01/17 [History] Corona-3 Fatty Acids/Fish Oil [Fish Oil 1,000 mg Softgel] 1 cap PO HS 10/01/17 [History] Prostate Herbal Combo 1 tab PO BID 10/01/17 [History] Testosterone [Androgel 1.62% Gel Pump] 1 applic TOPICAL DAILY 10/01/17 [History] gemfibroziL [Lopid] 600 mg PO BID 10/01/17 [History] Empagliflozin [Jardiance] 25 mg PO DAILY 09/10/19 [History] Omeprazole [PriLOSEC] 20 mg PO BID 09/10/19 [History] Cinnamon Bark [Cinnamon] 500 mg PO BID 02/24/25 [History] EPINEPHrine (Auto Inject) [Epipen] 0.3 mg IM ONCE PRN 02/24/25 [History] Ergocalciferol [Vitamin D2 (1250 Mcg = 10979 Iu)] 1,250 mcg PO TH 02/24/25 [History] HYDROcodone/APAP 5-325MG [Crawford 5-325] 1 tab PO BID PRN 02/24/25 [History] Insulin Glargine,Hum.rec.anlog [Lantus Solostar Pen] 30 units SQ DAILY 02/24/25 [History] Ondansetron [Zofran] 4 mg PO BID PRN 02/24/25 [History] Tirzepatide [Mounjaro] 12.5 mg SQ TU 02/24/25 [History] cefuroxime axetiL [Ceftin] 500 mg PO BID #20 tab 03/01/25 [Rx] Follow up Appointment(s)/Referral(s): Kel Mccartney MD [STAFF PHYSICIAN] - 03/09/25 10:20 am Chinedu Ceron [Primary Care Provider] - 1-2 days Tobi Jackson DO [REFERRING] - 1 Week (Your doctor's office said the [employer]LECT[employer]IC who was seeing you is no longer with the practice, so this is who they are referring you to. Also attached is a list of local primary care providers.) Riana Masters MD [STAFF PHYSICIAN] - 03/12/25 3:15 pm Activity/Diet/Wound Care/Special Instructions: Heart healthy diet Activity is restricted till you see your doctor Discharge/Stand Alone Forms: [facility] Area PCPs Discharge Disposition: HOME SELF-CARE
== END 2025-03-02 14:29 | disposition home or self-care (01) | DRG 853 ==
LOC: EC 13:38 → 3SCARD 18:03
PROVIDERS: ADMIT Internal Medicine; ATTEND Internal Medicine
PROC: 0T778DZ Dilation of Left Ureter with Intraluminal Device, Via Natural or Artificial Opening Endoscopic (ICD-10-PCS; principal; 2025-02-24 18:30)
DX: A41.9 Sepsis, unspecified organism (principal); J96.01 Acute respiratory failure with hypoxia; G93.49 Other encephalopathy; E11.9 Type 2 diabetes mellitus without complications; I10 Essential (primary) hypertension; N13.6 Pyonephrosis; E87.20 Acidosis, unspecified; N17.9 Acute kidney failure, unspecified; R65.20 Severe sepsis without septic shock; Z79.4 Long term (current) use of insulin; E78.5 Hyperlipidemia, unspecified; Z79.85 Long-term (current) use of injectable non-insulin antidiabetic drugs; Z79.899 Other long term (current) drug therapy; Z79.84 Long term (current) use of oral hypoglycemic drugs; Z87.891 Personal history of nicotine dependence; Z88.1 Allergy status to other antibiotic agents; Z85.51 Personal history of malignant neoplasm of bladder; Z85.47 Personal history of malignant neoplasm of testis
CPT/HCPCS: 36415; 70450; 71046; 74176; 80048; 80053; 81001; 83036; 83605; 83880; 85025; 85610; 85730; 87040; 87086; 93005; 96361; 96365; 99291